=== PATIENT | female | born 1940 | race Caucasian/White ===

== ENCOUNTER 2024-12-25 17:22 | Inpatient (IN) | payer MEDICARE, OTHER ==
[~2024-12-25] VITALS: Ht 152.4 cm; Wt 69.1 kg
--- NOTE | 2024-12-25 17:45 | ECG ---
[facility] Test Date: 2024-12-25 Test Time: 17:41:11 Pat Name: ISAI CASH Department: ED Room: 0251 Gender: F [place] Floor Person: MEHRAN : 1940 Requested By: KARLEE HOFFMAN Order Number: [id number] Reading MD: Kingsley Francis Measurements Intervals [place] Rate: 74 P: 0 ME: 226 QRS: 40 QRSD: 95 T: 23 QT: 404 QTc: 449 Interpretive Statements Atrial-paced rhythm Minimal ST depression, inferior leads Electronically Signed On 12-29-2024 9:46:22 PDT by Kingsley Francis Please click the below link to view image of tracing.
--- NOTE | 2024-12-25 18:08 | ED.PDOC ---
History of Present Illness HPI Comments This is an 84-year-old female who comes in by EMS with dementia and oriented x1. The patient denies any vomiting or diarrhea. According to the paramedics, the patient has been living at home but has been more difficult to be care for. They were changing her approximately 45 minutes prior to arrival and the patient has slid down but did not hit her head. The patient seems to be declining according to the family. He has been having increased weakness over the past week. There has been no other complaints at this time. When we did try to interview the patient about her history, the patient is only able to tell us her name. Chief Complaint: General Weakness Time Seen by MD: 17:43 Reviewed Notes: Nurses Notes, Bullet Casting Operator Notes, Medications, Allergies (No allergies to medications) Allergies: Coded Allergies: NO KNOWN ALLERGIES (Unverified , 12/25/24) Information Source: Emergency Med Personnel Mode of Arrival: EMS Severity: Moderate Timing: Days Duration: Since onset Prehospital treatment: None Associated signs and symptoms Generalized weakness Past Medical History PAST MEDICAL HISTORY: Dementia, High Lipids, Denies Surgical History: Unknown JIG WORKER History: No Pertinent JIG WORKER History Family History Family History: Unknown Social History Smoker: Non-Smoker Alcohol: Denies ETOH Use Drugs: Denies Drug Use Lives In: Home Constitutional: reports: weakness; denies: chills, diaphoresis, fatigue, fever, malaise, sweats, others EENTM: denies: blurred vision, double vision, ear bleeding, ear discharge, ear drainage, ear pain, ear ringing, eye pain, eye redness, hearing loss, mouth pain, mouth swelling, nasal discharge, nose bleeding, nose congestion, nose pain, photophobia, tearing, throat pain, throat swelling, voice changes, others Respiratory: denies: cough, hemoptysis, orthopnea, SOB at rest, shortness of breath, SOB with excertion, stridor, wheezing, others Cardiovascular: denies: chest pain, dizzy spells, diaphoresis, Dyspnea on exertion, edema, irregular heart beat, left arm pain, lightheadedness, palpitations, PND, syncope, others Gastrointestinal: denies: abdomen distended, abdominal pain, blood streaked bowels, constipated, diarrhea, dysphagia, difficulty swallowing, hematemesis, melena, nausea, poor appetite, poor fluid intake, rectal bleeding, rectal pain, vomiting, others Genitourinary: denies: abnormal vagina bleeding, burning, dyspareunia, dysuria, flank pain, frequency, hematuria, incontinence, pain, , vagina discharge, urgency, others Neurological: reports: others (Altered mental status); denies: dizziness, fainting, headache, left sided numbness, left sided weakness, numbness, paresthesia, pre-existing deficit, right sided numbness, right sided weakness, seizure, speech problems, tingling, tremors, weakness Musculoskeletal: denies: back pain, gout, joint pain, joint swelling, muscle pain, muscle stiffness, neck pain, others Integumetry: denies: bruises, change in color, change in hair/nails, dryness, laceration, lesions, lumps, rash, wounds, others Allergic/Immunocompromised: denies: Difficulty Healing, Frequent Infections, Hives, Itching, others Hematologic/Lymphatic: denies: anemia, blood clots, easy bleeding, easy bruising, swollen glands, others Endocrine: denies: excessive hunger, excessive sweating, excessive thirst, excessive urination, flushing, intolerance to cold, intolerance to heat, unexplained weight gain, unexplained weight loss, others Psychiatric: denies: anxiety, bipolar disorder, depression, hopeless, panic disorder, schizophrenia, sleepless, suicidal, others Physical Exam General Appearance: Moderate Distress, Obese HEENT: Normal ENT Inspection, Pharynx Normal, TMs Normal Neck: Full Range of Motion, Non-Tender, Normal, Normal Inspection Respiratory: Chest Non-Tender, Lungs Clear, No Accessory Muscle Use, No Respiratory Distress, Normal Breath Sounds Cardiovascular: No Edema, No JVD, No Murmur, No Gallop, Normal Peripheral Pulses, Regular Rate/Rhythm Breast Exam: Deferred Gastrointestinal: No Organomegaly, Non Tender, No Pulsatile Mass, Normal Bowel Sounds, Soft Genitalia: Deferred Pelvic: Deferred Rectal: Deferred Extremities: No calf tenderness, Normal capillary refill, Normal inspection, Normal range of motion, Non-tender, No pedal edema Musculoskeletal : Apperance: Normal Neurologic: Alert, fruit buyer II-XII nml as Tested, Motor Weakness, No Sensory Deficits, Other (The patient is confused) Cerebellar Function: Normal Reflexes: Normal Skin: Dry, Normal Color, Warm Lymphatic: No Adenopathy Was a procedure done? Was a procedure done?: No Differential Dx Considerations may include: UTI, generalized weakness, electrolyte imbalance X-Ray, Labs, Meds, VS Vital Signs Date Time Temp Pulse Resp B/P (MAP) Pulse Ox O2 Delivery O2 Flow Rate FiO2 12/25/24 17:41 74 12/25/24 17:39 98.6 66 14 187/85 (119) 98 98.6 Lab Test 12/25/24 18:18 Range/Units White Blood Count 5.9 4.4-10.8 10^3/uL Red Blood Count 4.86 4.0-5.20 10^6/uL Hemoglobin 13.6 12.2-16.2 g/dL Hematocrit 40.9 36.0-46.0 % Mean Corpuscular Volume 84.0 80.0-100.0 fL Mean Corpuscular Hemoglobin 27.9 L 28.0-32.0 pg Mean Corpuscular Hemoglobin Concent 33.2 32.0-36.0 g/dL Red Cell Distribution Width 14.4 H 11.8-14.3 % Platelet Count 281 140-450 10^3/uL Mean Platelet Volume 7.3 6.9-10.8 fL Neutrophils (%) (Auto) 62.9 37.0-80.0 % Lymphocytes (%) (Auto) 26.2 10.0-50.0 % Monocytes (%) (Auto) 7.1 0.0-12.0 % Eosinophils (%) (Auto) 2.5 0.0-7.0 % Basophils (%) (Auto) 1.3 0.0-2.0 % Neutrophils # (Auto) 3.7 1.6-8.6 10 ^3/uL Lymphocytes # (Auto) 1.6 0.4-5.4 10 ^3/uL Monocytes # (Auto) 0.4 0-1.3 10 ^3/uL Eosinophils # (Auto) 0.1 0-0.8 10 ^3/uL Basophils # (Auto) 0.1 0-0.2 10 ^3/uL Nucleated Red Blood Cells 0.1 % Sodium Level 142 136-145 mmol/L Potassium Level 4.0 3.5-5.1 mmol/L Chloride Level 108 H 98-107 mmol/L Carbon Dioxide Level 25 20-31 mmol/L Anion Gap 9 5-15 Blood Urea Nitrogen 13 9-23 mg/dL Creatinine 0.74 0.550-1.02 mg/dL Glomerular Filtration Rate Calc 80 >90 mL/min BUN/Creatinine Ratio 17.6 10.0-20.0 Serum Glucose 93 74-106 mg/dL Calcium Level 10.5 H 8.7-10.4 mg/dL IV Hep-Lock was established The patient is given normal saline as a bolus Time of 1ST Reevaluation: 18:08 Reevaluation 1ST: Improved Patient Education/Counseling: Diagnosis, Treatment, Prognosis Family Education/Counseling: No Family Present SEPSIS Sepsis Screen Physician Orders Urinalysis (12/25/24 17:43) Buffet Runner (12/25/24 17:43) Pulse Oximetry (12/25/24 17:43) Blood Pressure (12/25/24 17:43) Heplock Iv (12/25/24 17:43) Vital Signs Date Time Temp Pulse Resp B/P (MAP) Pulse Ox O2 Delivery O2 Flow Rate FiO2 12/25/24 17:41 74 12/25/24 17:39 98.6 66 14 187/85 (119) 98 98.6 Laboratory Tests Test 12/25/24 18:18 White Blood Count 5.9 10^3/uL (4.4-10.8) Departure 1 Departure Time of Disposition: 18:08 Impression: Primary Impression: Dementia Qualified Codes: F03.B0 - Unspecified dementia, moderate, without behavioral disturbance, psychotic disturbance, mood disturbance, and anxiety Additional Impression: Autonomic dysfunction Disposition: ADMITTED INPATIENT Admit to: Med Surg Condition: Fair Critical Care Note Critical Care Time?: Yes Stability Stability form required: Yes Unstable for transfer: ED Physician Assesment (Clinical assesment) Heart Score Heart Score: Heart Score Response (Comments) Value History N/A 0 EKG N/A 0 Age N/A 0 Risk Factors N/A 0 Troponin N/A 0 Total 0 KARLEE HOFFMAN MD Dec 25, 2024 18:08
[2024-12-25 18:35] LABS: Hematocrit 40.9 % (36.0-46.0); Hemoglobin 13.6 g/dL (12.2-16.2); Mean Corpuscular Hemoglobin 27.9 pg (28.0-32.0); Mean Corpuscular Volume 84.0 fL (80.0-100.0); Nucleated Red Blood Cells % 0.1 %
[2024-12-25 18:44] LABS: Anion Gap 9 (5-15); Carbon Dioxide 25 mmol/L (20-31); Potassium 4.0 mmol/L (3.5-5.1); Sodium 142 mmol/L (136-145)
[2024-12-25 18:47] LABS: Calcium 10.5 mg/dL (8.7-10.4); Chloride 108 mmol/L (98-107)
[2024-12-25 18:50] LABS: BUN/Creatinine Ratio 17.6 (10.0-20.0); Blood Urea Nitrogen 13 mg/dL (9-23); Glucose 93 mg/dL (74-106)
[2024-12-25] MEDS ORDERED: ONDANSETRON HCL 4 MG/2 ML VIAL IV PRN (22:45)
--- NOTE | 2024-12-25 23:08 | DVH ---
EXAM: CT STROKE CTH INDICATION: r/o cva TECHNIQUE: CT of the head without intravenous contrast. Radiation Dose : 1. Head: CT Dose: CTDI volume is 53.99 mGy. Dose-length product is 863.9 mGy*cm The dose indicators for CT are the volume Computed Tomography (CT) Dose Index (CTDIvol) and the Dose Length Product (DLP), and are measured in units of mGy and mGy-cm, respectively. These indicators are not patient dose, but values generated from the CT scanner acquisition factors. The report includes radiation exposure data for exposures received during this examination. COMPARISON: None FINDINGS: There is no evidence of acute intracranial hemorrhage, extra-axial collection, mass effect, midline s hift, herniation or hydrocephalus. Increased prominence of the ventricles, sulci and cisterns is consistent with atrophic cortical volum e loss. The blancas-white differentiation is intact. Moderate diffuse confluent periventricular and subcortical white matter hypoattenuation is nonspecifi c but may be related to small vessel ischemic disease. Bilateral maxillary mucosal sinus disease. The remaining visualized paranasal sinuses and mastoid ai r cells are clear. The surrounding soft tissues and osseous structures are unremarkable. IMPRESSION: 1. No acute intracranial abnormality. 2. 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 Radiation optimization: All CT scans at this facility use at least one of these dose optimization fly hniques: automated exposure control mA and/or kV adjustment per patient size (includes targeted exam s where dose is matched to clinical indication) or iterative reconstruction.
--- NOTE | 2024-12-25 23:14 | DVHHP2 ---
History of Present Illness Reason for Visit: Altered mental status History of Present Illness 84-year-old female with a history of dementia presents with her daughter at the bedside for evaluation of altered mental status. Daughter reports patient becoming progressively more altered and having recurrent falls. Patient does dozier ve a history of dementia. Daughter is requesting the patient to be placed on a assisted as she can no longer take care of her. Past Medical History Dyslipidemia, dementia, hypertension Past Surgical History None Family History Noncontributory Smoke: No ALCOHOL: none Lives: with Family Review of Systems Review of Systems Review of systems can not be completed due to the patient's advanced dementia. Allergies: Coded Allergies: NO KNOWN ALLERGIES (Unverified , 12/25/24) Medications Current Medications Medications Dose Ordered Sig/Yovani Route Start Time Stop Time Status Last Admin Dose Admin Metoprolol Tartrate 50 mg BID PO 12/26/24 10:00 Hydralazine HCl 10 mg Q6HP PRN IV 12/25/24 22:45 Memantine 10 mg DAILY PO 12/26/24 10:00 Patient Own Medication 150 mg DAILY PO 12/26/24 10:00 UNV Buspirone HCl 15 mg DAILY PO 12/26/24 10:00 Ondansetron HCl 4 mg Q4HP PRN IV 12/25/24 22:45 Acetaminophen 650 mg Q6HP PRN PO 12/25/24 22:45 Exam Vital Signs Vital Signs Date Time Temp Pulse Resp B/P (MAP) Pulse Ox O2 Delivery O2 Flow Rate FiO2 12/25/24 17:41 74 12/25/24 17:39 98.6 14 187/85 (119) 98 98.6 Exam Gen: 84-year-old female in no apparent distress. Skin: Warm, dry, normal color and texture, no rash. HEENT: Normocephalic atraumatic, mucous membranes moist and pink. Neck: Cervical and supraclavicular nodes normal without enlargement, trachea is midline, thyroid gland is normal without masses. Pulmonary: Clear to auscultation and percussion bilaterally. Cardiac: Regular rate and rhythm. No murmur Abdomen: Soft, nontender, nondistended, bowel sounds present all 4 quadrants, no guarding, no rigidity, no organomegaly. Extremities: No cyanosis, clubbing, no edema Neuro: Confused Labs/Xrays Labs Test 12/25/24 18:18 Range/Units White Blood Count 5.9 4.4-10.8 10^3/uL Red Blood Count 4.86 4.0-5.20 10^6/uL Hemoglobin 13.6 12.2-16.2 g/dL Hematocrit 40.9 36.0-46.0 % Mean Corpuscular Volume 84.0 80.0-100.0 fL Mean Corpuscular Hemoglobin 27.9 L 28.0-32.0 pg Mean Corpuscular Hemoglobin Concent 33.2 32.0-36.0 g/dL Red Cell Distribution Width 14.4 H 11.8-14.3 % Platelet Count 281 140-450 10^3/uL Mean Platelet Volume 7.3 6.9-10.8 fL Neutrophils (%) (Auto) 62.9 37.0-80.0 % Lymphocytes (%) (Auto) 26.2 10.0-50.0 % Monocytes (%) (Auto) 7.1 0.0-12.0 % Eosinophils (%) (Auto) 2.5 0.0-7.0 % Basophils (%) (Auto) 1.3 0.0-2.0 % Neutrophils # (Auto) 3.7 1.6-8.6 10 ^3/uL Lymphocytes # (Auto) 1.6 0.4-5.4 10 ^3/uL Monocytes # (Auto) 0.4 0-1.3 10 ^3/uL Eosinophils # (Auto) 0.1 0-0.8 10 ^3/uL Basophils # (Auto) 0.1 0-0.2 10 ^3/uL Nucleated Red Blood Cells 0.1 % Sodium Level 142 136-145 mmol/L Potassium Level 4.0 3.5-5.1 mmol/L Chloride Level 108 H 98-107 mmol/L Carbon Dioxide Level 25 20-31 mmol/L Anion Gap 9 5-15 Blood Urea Nitrogen 13 9-23 mg/dL Creatinine 0.74 0.550-1.02 mg/dL Glomerular Filtration Rate Calc 80 >90 mL/min BUN/Creatinine Ratio 17.6 10.0-20.0 Serum Glucose 93 74-106 mg/dL Calcium Level 10.5 H 8.7-10.4 mg/dL Assessment/Plan Assessment/Plan Assessment Failure to thrive Dementia Accelerated hypertension Plan Admit the patient to [facility] to the hospitalist Social service consult for placement Resume home medications Continue treatment per orders. Plan discussed with: Patient My Orders Orders - TERRY SALAZAR Procedure Category Date Status Time Ct Head Cva CT 12/25/24 Resulted 22:23 Urinalysis LAB 12/25/24 Logged 22:31 Metoprolol Tartrate PHA 12/26/24 In Process Tablet (Lopressor Ta 10:00 Hydralazine Injection PHA 12/25/24 In Process (Apresoline Inject 22:45 Memantine Tablet PHA 12/26/24 In Process (Namenda Tablet) 10:00 (Nf) Pradaxa PHA 12/26/24 Pending 10:00 Buspirone Hcl Tablet PHA 12/26/24 In Process (Buspar Tablet) 10:00 * Customer Success Associate CONS 12/25/24 Transmitted Consult Urine Bacterial DEBBY 12/25/24 Logged Culture 22:31 Admit ADMIT 12/25/24 Transmitted 22:31 Ondansetron Hcl PHA 12/25/24 In Process (Zofran) 22:45 Cardiac DIET 12/26/24 Transmitted Diet-2gna,Lofat,Lochol Breakfast Condition: Stable JOANNE 12/25/24 In Process 22:31 Acetaminophen Tablet PHA 12/25/24 In Process (Tylenol Tablet) 22:45 Bedrest With Bathroom JOANNE 12/25/24 In Process Privileg 22:31 Date of Service: Dec 25, 2024 Billing Provider: TERRY SALAZAR Common Visit Codes: [id number] INP/OBS CARE (MOD) TERRY SALAZAR Dec 25, 2024 23:14
[2024-12-25 23:29] VITALS: PULSE 81; RESP 14; O2SAT 95
[2024-12-26] MEDS: hydrALAZINE HCL 20 MG/ML VL IV PRN (01:52)
[2024-12-26 02:05] LABS: Urine Protein, UAD TRACE (Negative)
[2024-12-26] MEDS: LORazepam 2MG/ML-1ML VIAL IV ONE (03:53)
[2024-12-26 08:04] VITALS: PULSE 60; RESP 12; O2SAT 97
[2024-12-26 10:35] VITALS: RESP 14; O2SAT 95
[2024-12-26] MEDS: METOPROLOL TARTRATE 50 MG TAB PO SCH (10:48)
[2024-12-26] MEDS: MEMANTINE HCL 5 MG TAB PO SCH (10:49)
--- NOTE | 2024-12-26 12:48 | DVHPN2 ---
Progress Note Date Seen: Dec 26, 2024 Medical Necessity Reason Pt with a Central, PICC or Fol: Yes The following are medically ne: Bain Catheter Reason for bain catheter: Strict I&O Subjective Patient reports: No new complaints Review of Systems: HEENT:Normal, CVS:Normal, RESPIRATORY:Normal, GI:Normal, :Normal, MSK:Normal, NEURO:Normal Objective vital signs Vital Sign Date Time Temp Pulse Resp B/P (MAP) Pulse Ox O2 Delivery O2 Flow Rate FiO2 12/26/24 12:01 60 13 158/59 (92) 97 12/26/24 08:04 97.2 97.2 12/26/24 08:04 Room Air* 0 21 Total Intake and Output 12/25/24 12/25/24 12/26/24 15:00 23:00 07:00 Output Total 27 ml Balance -27 ml medications Current Medications Medications Dose Ordered Sig/Yovani Route Start Time Stop Time Status Last Admin Dose Admin Metoprolol Tartrate 50 mg BID PO 12/26/24 10:00 12/26/24 10:48 50 MG Hydralazine HCl 10 mg Q6HP PRN IV 12/25/24 22:45 12/26/24 01:52 10 MG Memantine 10 mg DAILY PO 12/26/24 10:00 12/26/24 10:49 10 MG Patient Own Medication 150 mg DAILY PO 12/26/24 10:00 Buspirone HCl 15 mg DAILY PO 12/26/24 10:00 12/26/24 10:48 15 MG Ondansetron HCl 4 mg Q4HP PRN IV 12/25/24 22:45 Acetaminophen 650 mg Q6HP PRN PO 12/25/24 22:45 Examination: GENERAL:Normal, HEENT:Normal, NECK:Normal, LUNGS:Normal, CVS:Normal, ABDOMEN:Normal, MSK:Normal, SKIN:Normal, NEURO:Normal, :Normal laboratory and microbiology Laboratory Tests 12/25/24 18:18 Test 12/25/24 18:18 Range/Units Serum Glucose 93 74-106 mg/dL Problem List/Assessment/Plan Problem List/Assessment/Plan #1 dementia; check b12, tsh #2 htn #3 ? afib #4 hyperlipidemia advance care planning- full code- time spent 19 mins Plan discussed with: Patient Date of Service: Dec 26, 2024 Billing Provider: TERRY MCRAE MD Common Visit Codes: [id number] INP/OBS CARE(HIGH) Secondary Visit Codes: [id number] CARE PLAN 30 MINUTES TERRY MCRAE MD Dec 26, 2024 12:48
--- NOTE | 2024-12-26 14:39 | DVH ---
CHEST RADIOGRAPH Indication: HTN Technique: Single frontal view of the chest was obtained Comparison: None FINDINGS: Lines and Tubes: Dual lead left-sided pacemaker. Lungs: No focal consolidation. Pleura: No effusion. No pneumothorax. Cardiomediastinal contours: Unremarkable Bones: No acute osseous abnormality. IMPRESSION: No acute cardiopulmonary disease. Aortic atherosclerosis.
[2024-12-26 20:00] VITALS: PULSE 60; RESP 15; O2SAT 96
[2024-12-26 22:05] VITALS: BP 179/64; PULSE 63; RESP 16; TEMP 97.6; O2SAT 95
[2024-12-27] VITALS (8 sets, daily range): BP systolic 148–185; BP diastolic 68–112; PULSE 59–71; RESP 16–17; TEMP 97.1–98.3; O2SAT 94–98
[2024-12-27] MEDS ORDERED: TELM80TA PO (00:01)
[2024-12-27] MEDS ORDERED: NEBI10TA12 PO (00:01)
[2024-12-27] MEDS ORDERED: BUSP10TA31 PO (00:01)
[2024-12-27] MEDS ORDERED: MEMA1TAB5 PO (00:01)
[2024-12-27] MEDS ORDERED: DABI150C5 PO (00:01)
[2024-12-27] MEDS ORDERED: BUSP5TAB51 PO (00:47)
--- NOTE | 2024-12-27 01:59 | DVH ---
CLINICAL INDICATION: fall injury TECHNIQUE: XY PELVIS AP Comparison: None FINDINGS/IMPRESSION: : There is no definite evidence of acute fracture or dislocation. 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 Soft tissues are unremarkable.
[2024-12-27 06:47] LABS: Hematocrit 42.5 % (36.0-46.0); Hemoglobin 14.3 g/dL (12.2-16.2); Mean Corpuscular Hemoglobin 28.2 pg (28.0-32.0); Mean Corpuscular Volume 83.8 fL (80.0-100.0); Nucleated Red Blood Cells % 0.0 %
[2024-12-27 07:02] LABS: Alanine Aminotransferase 11 U/L (7-40); Albumin 3.9 g/dL (3.2-4.8); Alkaline Phosphatase 100 U/L (46-116); Anion Gap 8 (5-15); BUN/Creatinine Ratio 20.0 (10.0-20.0); Bilirubin, Total 0.8 mg/dL (0.2-1.0); Blood Urea Nitrogen 16 mg/dL (9-23); Calcium 10.0 mg/dL (8.7-10.4); Carbon Dioxide 27 mmol/L (20-31); Chloride 106 mmol/L (98-107); Glucose 97 mg/dL (74-106); Sodium 141 mmol/L (136-145); Total Protein 6.6 g/dL (5.7-8.2)
[2024-12-27 07:08] LABS: Potassium 3.5 mmol/L (3.5-5.1)
[2024-12-27] MEDS: CYANOCOBALAMIN (B-12) 1000 MCG/1 ML VIAL SUBCUT ONE (10:45)
[2024-12-27] MEDS: DABIGATRAN 75 MG CAP PO SCH (11:10)
[2024-12-27] MEDS: cefTRIAXone 1GM/50ML D5W 50 ML IV ONE (12:38)
[2024-12-27] MEDS: LOSARTAN POTASSIUM 50 MG TAB PO ONE (12:39)
[2024-12-27] MEDS: METOPROLOL TARTRATE 50 MG TAB PO SCH (22:39)
[2024-12-28] VITALS (7 sets, daily range): BP systolic 108–180; BP diastolic 48–78; PULSE 60–70; RESP 16–19; TEMP 36.6; O2SAT 94–98
[2024-12-28] MEDS: cefTRIAXone 1GM/50ML D5W 50 ML IV SCH (09:25)
[2024-12-28] MEDS: CYANOCOBALAMIN (B-12) 1000 MCG/1 ML VIAL SUBCUT SCH (09:28)
[2024-12-28] MEDS: LOSARTAN POTASSIUM 50 MG TAB PO SCH (09:29)
--- NOTE | 2024-12-28 11:02 | DVHPN2 ---
Progress Note Date Seen: Dec 27, 2024 Medical Necessity Reason Pt with a Central, PICC or Fol: Yes The following are medically ne: Bain Catheter Reason for bain catheter: Strict I&O Subjective Patient reports: No new complaints Review of Systems: HEENT:Normal, CVS:Normal, RESPIRATORY:Normal, GI:Normal, :Normal, MSK:Normal, NEURO:Normal Objective vital signs Vital Sign Date Time Temp Pulse Resp B/P (MAP) Pulse Ox O2 Delivery O2 Flow Rate FiO2 12/28/24 09:30 68 158/48 12/28/24 08:58 97.9 19 97 97.9 12/28/24 08:00 Room Air* 0 21 Total Intake and Output 12/27/24 12/27/24 12/28/24 15:00 23:00 07:00 Intake Total 600 ml 395 ml Output Total 800 ml 650 ml Balance -200 ml -255 ml medications Current Medications Medications Dose Ordered Sig/Yovani Route Start Time Stop Time Status Last Admin Dose Admin Hydralazine HCl 10 mg Q6HP PRN IV 12/25/24 22:45 12/28/24 05:20 10 MG Memantine 10 mg DAILY PO 12/26/24 10:00 12/28/24 09:29 10 MG Buspirone HCl 15 mg DAILY PO 12/26/24 10:00 12/28/24 09:34 15 MG Ondansetron HCl 4 mg Q4HP PRN IV 12/25/24 22:45 Acetaminophen 650 mg Q6HP PRN PO 12/25/24 22:45 Metoprolol Tartrate 25 mg BID PO 12/27/24 22:00 12/28/24 09:30 25 MG Ceftriaxone Sodium 50 ml @ 100 mls/hr DAILY@09 IV 12/28/24 09:00 12/28/24 09:25 100 MLS/HR Dabigatran 75 mg BID PO 12/27/24 11:10 12/28/24 09:28 75 MG Losartan Potassium 50 mg DAILY PO 12/28/24 10:00 12/28/24 09:29 50 MG Cyanocobalamin 100 mcg DAILY SUBCUT 12/28/24 10:00 12/28/24 09:28 100 MCG Examination: GENERAL:Normal, HEENT:Normal, NECK:Normal, LUNGS:Normal, CVS:Normal, ABDOMEN:Normal, MSK:Normal, SKIN:Normal, NEURO:Normal, :Normal laboratory and microbiology Laboratory Tests 12/27/24 06:21 Test 12/27/24 06:21 Range/Units Serum Glucose 97 74-106 mg/dL Microbiology Date/Time Source Procedure Growth Status 12/26/24 01:00 Voided Urine Urine Culture - Preliminary Resulted Problem List/Assessment/Plan Problem List/Assessment/Plan #1 dementia; #2 htn #3 ? afib #4 hyperlipidemia #5 UTI: iv rocephin #6 vit b12 def long dw daughter note for 12/27/24 advance care planning- dnr- time spent 19 mins Plan discussed with: Patient, Daughter My Orders My Orders Orders - TERRY MCRAE MD Procedure Category Date Status Time Discharge DISCHARGE 12/28/24 Transmitted 10:55 * Order Selector CONS 12/28/24 Transmitted Consult 10:58 Date of Service: Dec 27, 2024 Billing Provider: TERRY MCRAE MD Common Visit Codes: [id number] INP/OBS CARE(HIGH) Secondary Visit Codes: [id number] CARE PLAN 30 MINUTES TERRY MCRAE MD Dec 28, 2024 11:02
--- NOTE | 2024-12-28 11:06 | DVHDS ---
DATE OF DISCHARGE: 12/28/2024 The patient is an 84-year-old lady who was admitted with history of altered mental status and recurrent falls. She has history of dementia, hypertension, hyperlipidemia. HOSPITAL COURSE: The patient had a CT of the head that showed no acute intracranial abnormality. The patient had a pelvic x-ray that showed no fracture. The patient had evidence of UTI and was placed on IV Rocephin. The patient's B12 level was low at 204. The patient will now be discharged to a SNF as per family wishes to be on medications as per med reconciliation. FINAL DIAGNOSES: * Dementia. * Vitamin B12 deficiency. * UTI. * Hypertension. * History of pacemaker. * Atrial fibrillation. * Hyperlipidemia. * DNR status. Time spent in discharge planning and review of plan with the patient, family, and paperwork was 39 minutes. MD JODI Hinojosa/BUBBA TID: [id number] RECEIPT: [id number]
[2024-12-28] MEDS: ACETAMINOPHEN 325 MG TAB PO PRN (21:09)
[2024-12-29] VITALS (8 sets, daily range): BP systolic 149–172; BP diastolic 63–78; PULSE 60–67; RESP 16–18; TEMP 97.5–98.4; O2SAT 94–97
--- NOTE | 2024-12-29 13:50 | DVHPN2 ---
Changes from previous H/P or p: No Changes Objective Vitals Vital Signs Date Time Temp Pulse Resp B/P (MAP) Pulse Ox O2 Delivery O2 Flow Rate FiO2 12/29/24 12:33 98.4 63 16 159/68 (98) 96 98.4 12/29/24 08:00 Room Air* 0 21 Intake/Output Intake and Output 12/29/24 07:00 Intake Total 875 ml Output Total 775 ml Balance 100 ml Intake Oral 825 ml IV Total 50 ml Output Urine Total 775 ml Medications Current Medications Medications Dose Ordered Sig/Yovani Route Start Time Stop Time Status Last Admin Dose Admin Hydralazine HCl 10 mg Q6HP PRN IV 12/25/24 22:45 12/29/24 05:12 10 MG Memantine 10 mg DAILY PO 12/26/24 10:00 12/29/24 09:48 10 MG Buspirone HCl 15 mg DAILY PO 12/26/24 10:00 12/29/24 09:47 15 MG Ondansetron HCl 4 mg Q4HP PRN IV 12/25/24 22:45 Acetaminophen 650 mg Q6HP PRN PO 12/25/24 22:45 12/28/24 21:09 650 MG Metoprolol Tartrate 25 mg BID PO 12/27/24 22:00 12/29/24 09:50 25 MG Ceftriaxone Sodium 50 ml @ 100 mls/hr DAILY@09 IV 12/28/24 09:00 12/29/24 09:47 100 MLS/HR Dabigatran 75 mg BID PO 12/27/24 11:10 12/29/24 10:29 75 MG Losartan Potassium 50 mg DAILY PO 12/28/24 10:00 12/29/24 09:49 50 MG Cyanocobalamin 100 mcg DAILY SUBCUT 12/28/24 10:00 12/29/24 09:55 100 MCG Laboratory Results Laboratory Tests 12/27/24 06:21 Urinalysis Test 12/26/24 01:00 Urine Color Yellow (Yellow) Urine Clarity Turbid (Clear) H Urine pH 5.0 (5.0-9.0) Urine Specific [place] 1.027 (1.001-1.035) Urine Protein Trace (Negative) H Urine Ketones Negative (Negative) Urine Blood Negative /uL (Negative) Urine Nitrite 2+ (Negative) H Urine Bilirubin Negative (Negative) Urine Urobilinogen Normal mg/dL (Negative) Urine Leukocyte Esterase 2+ /uL (Negative) Urine RBC 11 /hpf (0 - 4) Urine Microscopic WBC 53 /HPF (0-5) H Urine Squamous Epithelial Cells Few /hpf (<5) Urine Bacteria Many /hpf (None Seen) H Urine Mucus Few (None Seen) Urine Glucose Normal mg/dL (Normal) Microbiology Microbiology Date/Time Source Procedure Growth Status 12/26/24 01:00 Voided Urine Urine Culture - Final Escherichia coli Complete Labs and/or images reviewed: Labs reviewed by me, Image(s) reviewed by me Assessment/Plan Assessment/Plan Covering for Dr. [place] * Dementia. * Vitamin B12 deficiency. * UTI. * Hypertension. * History of pacemaker. * Atrial fibrillation. * Hyperlipidemia. * DNR status. Waiting for transportation to [facility] acute Sitter discontinued Plan discussed with: Patient My Orders Orders - MACK CRISTINA MD Procedure Category Date Status Time D/C Sitter ORDERS 12/29/24 Transmitted 13:47 Communication Order ORDERS 12/29/24 Transmitted 13:47 Date of Service: Dec 29, 2024 Billing Provider: MACK CRISTINA MD Common Visit Codes: [id number] INP/OBS CARE(HIGH) MACK CRISTINA MD Dec 29, 2024 13:50
[2024-12-30] VITALS (8 sets, daily range): BP systolic 135–186; BP diastolic 51–83; PULSE 60–73; RESP 16–18; TEMP 97.1–98.5; O2SAT 92–97
[2024-12-30] MEDS ORDERED: hydrALAZINE HCL 20 MG/ML VL ONE (06:56)
--- NOTE | 2024-12-30 09:57 | DVHPN2 ---
Changes from previous H/P or p: No Changes Objective Vitals Vital Signs Date Time Temp Pulse Resp B/P (MAP) Pulse Ox O2 Delivery O2 Flow Rate FiO2 12/30/24 07:19 179/93 12/30/24 05:00 97.8 64 18 97 97.8 12/29/24 20:00 Room Air* 0 21 Intake/Output Intake and Output 12/30/24 07:00 Intake Total 420 ml Output Total 450 ml Balance -30 ml Intake Oral 420 ml Output Urine Total 450 ml Medications Current Medications Medications Dose Ordered Sig/Yovani Route Start Time Stop Time Status Last Admin Dose Admin Hydralazine HCl 10 mg Q6HP PRN IV 12/25/24 22:45 12/30/24 07:19 10 MG Memantine 10 mg DAILY PO 12/26/24 10:00 12/29/24 09:48 10 MG Buspirone HCl 15 mg DAILY PO 12/26/24 10:00 12/29/24 09:47 15 MG Ondansetron HCl 4 mg Q4HP PRN IV 12/25/24 22:45 Acetaminophen 650 mg Q6HP PRN PO 12/25/24 22:45 12/28/24 21:09 650 MG Metoprolol Tartrate 25 mg BID PO 12/27/24 22:00 12/30/24 01:00 25 MG Ceftriaxone Sodium 50 ml @ 100 mls/hr DAILY@09 IV 12/28/24 09:00 12/29/24 09:47 100 MLS/HR Dabigatran 75 mg BID PO 12/27/24 11:10 12/29/24 22:00 75 MG Losartan Potassium 50 mg DAILY PO 12/28/24 10:00 12/29/24 09:49 50 MG Cyanocobalamin 100 mcg DAILY SUBCUT 12/28/24 10:00 12/29/24 09:55 100 MCG Laboratory Results Laboratory Tests 12/27/24 06:21 Urinalysis Test 12/26/24 01:00 Urine Color Yellow (Yellow) Urine Clarity Turbid (Clear) H Urine pH 5.0 (5.0-9.0) Urine Specific [place] 1.027 (1.001-1.035) Urine Protein Trace (Negative) H Urine Ketones Negative (Negative) Urine Blood Negative /uL (Negative) Urine Nitrite 2+ (Negative) H Urine Bilirubin Negative (Negative) Urine Urobilinogen Normal mg/dL (Negative) Urine Leukocyte Esterase 2+ /uL (Negative) Urine RBC 11 /hpf (0 - 4) Urine Microscopic WBC 53 /HPF (0-5) H Urine Squamous Epithelial Cells Few /hpf (<5) Urine Bacteria Many /hpf (None Seen) H Urine Mucus Few (None Seen) Urine Glucose Normal mg/dL (Normal) Microbiology Microbiology Date/Time Source Procedure Growth Status 12/26/24 01:00 Voided Urine Urine Culture - Final Escherichia coli Complete Labs and/or images reviewed: Labs reviewed by me, Image(s) reviewed by me Assessment/Plan Assessment/Plan Covering for Dr. Stockton * Dementia. * Vitamin B12 deficiency. * UTI. * Hypertension. * History of pacemaker. * Atrial fibrillation. * Hyperlipidemia. * DNR status. Waiting for transportation to [place] post acute today Sitter discontinued Plan discussed with: Patient My Orders Orders - MACK CRISTINA MD Procedure Category Date Status Time D/C Sitter ORDERS 12/29/24 Transmitted 13:47 Communication Order ORDERS 12/29/24 Transmitted 13:47 Date of Service: Dec 30, 2024 Billing Provider: MACK CRISTINA MD Common Visit Codes: [id number] INP/OBS CARE(HIGH) MACK CRISTINA MD Dec 30, 2024 09:57
[2024-12-31 01:00] VITALS: BP 184/54; PULSE 60; RESP 17; TEMP 97.7; O2SAT 93
[2024-12-31 05:00] VITALS: BP 133/52; PULSE 63; RESP 17; TEMP 97.8; O2SAT 92
[2024-12-31] MEDS: Ensure Enlive Vanilla 8oz Bottle PO SCH (08:00)
[2024-12-31 09:00] VITALS: BP 146/60; PULSE 68; RESP 17; TEMP 98.3; O2SAT 94
[2024-12-31] MEDS: CYANOCOBALAMIN (B-12) 1000 MCG/1 ML VIAL SUBCUT ONE (11:00)
--- NOTE | 2024-12-31 11:09 | DVHPN2 ---
Reviewed: Care Plan, H&P, Labs, Medications, Previous Orders, Radiology Changes from previous H/P or p: No Changes Objective Vitals Vital Signs Date Time Temp Pulse Resp B/P (MAP) Pulse Ox O2 Delivery O2 Flow Rate FiO2 12/31/24 11:02 138/65 12/31/24 11:01 69 12/31/24 05:00 97.8 17 92 97.8 12/30/24 20:00 Room Air* 0 21 Intake/Output Intake and Output 12/31/24 07:00 Intake Total 220 ml Output Total 475 ml Balance -255 ml Intake Oral 220 ml Output Urine Total 475 ml Medications Current Medications Medications Dose Ordered Sig/Yovani Route Start Time Stop Time Status Last Admin Dose Admin Hydralazine HCl 10 mg Q6HP PRN IV 12/25/24 22:45 12/30/24 07:19 10 MG Memantine 10 mg DAILY PO 12/26/24 10:00 12/31/24 10:54 10 MG Buspirone HCl 15 mg DAILY PO 12/26/24 10:00 12/31/24 10:55 15 MG Ondansetron HCl 4 mg Q4HP PRN IV 12/25/24 22:45 Acetaminophen 650 mg Q6HP PRN PO 12/25/24 22:45 12/28/24 21:09 650 MG Metoprolol Tartrate 25 mg BID PO 12/27/24 22:00 12/31/24 11:01 25 MG Ceftriaxone Sodium 50 ml @ 100 mls/hr DAILY@09 IV 12/28/24 09:00 12/31/24 09:17 100 MLS/HR Dabigatran 75 mg BID PO 12/27/24 11:10 12/31/24 10:54 75 MG Losartan Potassium 50 mg DAILY PO 12/28/24 10:00 12/31/24 11:02 50 MG Cyanocobalamin 100 mcg DAILY SUBCUT 12/28/24 10:00 12/30/24 09:50 100 MCG Enteral Nutritional Formula 240 ml BIDBL PO 12/31/24 08:00 12/31/24 08:00 240 ML Laboratory Results Laboratory Tests 12/27/24 06:21 Urinalysis Test 12/26/24 01:00 Urine Color Yellow (Yellow) Urine Clarity Turbid (Clear) H Urine pH 5.0 (5.0-9.0) Urine Specific [place] 1.027 (1.001-1.035) Urine Protein Trace (Negative) H Urine Ketones Negative (Negative) Urine Blood Negative /uL (Negative) Urine Nitrite 2+ (Negative) H Urine Bilirubin Negative (Negative) Urine Urobilinogen Normal mg/dL (Negative) Urine Leukocyte Esterase 2+ /uL (Negative) Urine RBC 11 /hpf (0 - 4) Urine Microscopic WBC 53 /HPF (0-5) H Urine Squamous Epithelial Cells Few /hpf (<5) Urine Bacteria Many /hpf (None Seen) H Urine Mucus Few (None Seen) Urine Glucose Normal mg/dL (Normal) Microbiology Microbiology Date/Time Source Procedure Growth Status 12/26/24 01:00 Voided Urine Urine Culture - Final Escherichia coli Complete Labs and/or images reviewed: Labs reviewed by me, Image(s) reviewed by me Assessment/Plan Assessment/Plan Covering for Dr. Stockton * Dementia. * Vitamin B12 deficiency. * UTI. * Hypertension. * History of pacemaker. * Atrial fibrillation. * Hyperlipidemia. * DNR status. Waiting for transportation to [place] post acute today Sitter discontinued Plan discussed with: Patient Date of Service: Dec 31, 2024 Billing Provider: MACK CRISTINA MD Common Visit Codes: [id number] INP/OBS CARE(HIGH) MACK CRISTINA MD Dec 31, 2024 11:09
[2024-12-31 13:00] VITALS: BP 148/65; PULSE 65; RESP 17; TEMP 98.3; O2SAT 95
[2024-12-31 17:00] VITALS: BP 134/58; PULSE 59; RESP 18; TEMP 99.1; O2SAT 95
[2024-12-31 20:00] VITALS: PULSE 64
== END 2024-12-31 21:57 | DRG 689 ==
LOC: EDBD 17:22 → ER 17:27 → OVERFLOW 22:31 → EAST 12-26 21:50
PROVIDERS: ADMIT Internal Medicine; ATTEND Internal Medicine
DX: N30.00 Acute cystitis without hematuria (principal); G93.41 Metabolic encephalopathy; R62.7 Adult failure to thrive; E78.5 Hyperlipidemia, unspecified; Z66 Do not resuscitate; I48.91 Unspecified atrial fibrillation; I10 Essential (primary) hypertension; G90.89 Other disorders of autonomic nervous system; E53.8 Deficiency of other specified B group vitamins; R29.6 Repeated falls; F03.90 Unspecified dementia, unspecified severity, without behavioral disturbance, psychotic disturbance, mood disturbance, and anxiety; Z95.0 Presence of cardiac pacemaker; Z79.899 Other long term (current) drug therapy; Z68.30 Body mass index [BMI] 30.0-30.9, adult
CPT/HCPCS: 36415; 70450; 71045; 72170; 80048; 80053; 81001; 82607; 82962; 84443; 85025; 87086; 87088; 87186; 93005; 97110; 97163; 97530; G0378

== ENCOUNTER 2025-01-21 22:32 | Inpatient (IN) | payer MEDICARE, OTHER ==
[~2025-01-21] VITALS: Ht 170.2 cm; Wt 70.7 kg
[~2025-01-21 22:32] MED LIST: BUSP5TAB51 PO; DABI150C5 PO; MEMA1TAB5 PO; NEBI10TA12 PO; TELM80TA PO
--- NOTE | 2025-01-21 22:42 | ECG ---
[facility] Test Date: 2025-01-21 Test Time: 22:37:28 Pat Name: ISAI CASH Department: ED Room: 0280T Gender: F Shot Peen Operator: renetta : 1940 Requested By: ALYSHA PERRY Order Number: [id number] Reading MD: Kingsley Francis Measurements Intervals [place] Rate: 89 P: 69 LA: 144 QRS: 59 QRSD: 90 T: 254 QT: 327 QTc: 398 Interpretive Statements Sinus rhythm Nonspecific repol abnormality, diffuse leads Electronically Signed On 01-24-2025 17:49:11 PDT by Kingsley Francis Please click the below link to view image of tracing.
[2025-01-21] MEDS: SODIUM CHLORIDE 0.9% 1,000 ML IVB ONE (22:45)
--- NOTE | 2025-01-21 22:50 | ED.PDOC ---
History of Present Illness HPI Comments 84 y/o F is QUINN from [facility] facility home for c/c altered mental status and failure to thrive. Per EMS report, staff called after endorsing on finding patient in current altered state from her usual baseline ( A&Ox0 vs 4) and not eating or drinking anything after dealing with a UTI for over the past 2x days. Significant history for AFib, dementia, HLD, HTN, UTI's, pacemaker, assisted living, and DNR status. Vitals were reported to have been stable and within normal limits, with exception of a systolic pressure in the 170's and a blood glucose of 103. No further acute symptoms reported. Further history is limited, due to patient's current condition and absence of family/cold rolling coordinator historian. Time Seen by MD: 22:30 Primary Care Provider: UNKNOWN Reviewed Notes: Nurses Notes, Water Commissioner Notes, Medications, Allergies Allergies: Coded Allergies: NO KNOWN ALLERGIES (Unverified , 12/25/24) Home Meds Reported Medications Buspirone Hcl (Buspirone Hcl) 5 Mg Tab, 1 TAB PO BID 12/27/24 Telmisartan (Micardis) 80 Mg Tab, 20 MG PO DAILY, TAB 12/27/24 Nebivolol HCl (Nebivolol) 10 Mg Tab, 10 MG PO DAILY, TAB 12/27/24 Dabigatran Etexilate Mesylate (Pradaxa) 150 Mg Cap, 150 MG PO BID, CAP 12/27/24 Memantine Hydrochloride (Memantine HCl) 10 Mg Tab, 10 MG PO DAILY, TAB 12/27/24 Information Source: Emergency Med Personnel Mode of Arrival: EMS Severity: Moderate Timing: Hours Duration: Since onset Prehospital treatment: 12 Lead EKG, Accucheck, Pipe Processor Past Medical History PAST MEDICAL HISTORY: AFIB, Dementia, High Lipids, HTN, UTI'S Past Medical History (Other): * Vitamin B12 deficiency. * DNR status. Surgical History: Pacemaker SUPERVISOR [employer] HATCHERY History: No Pertinent SUPERVISOR [employer] HATCH[employer] History Family History Family History: Unknown Social History Smoker: Non-Smoker Alcohol: Denies ETOH Use Drugs: Denies Drug Use Lives In: Assisted Care, Prison All Other Systems: Reviewed and Negative (Comprehensive systems review obtained and negative except for what is stated in the HPI.) Physical Exam General Appearance: No Apparent Distress, Normal HEENT: Normal ENT Inspection, Pharynx Normal, TMs Normal Neck: Full Range of Motion, Non-Tender, Normal, Normal Inspection Respiratory: Chest Non-Tender, Lungs Clear, No Accessory Muscle Use, No Respiratory Distress, Normal Breath Sounds Cardiovascular: No Edema, No JVD, No Murmur, No Gallop, Normal Peripheral Pulses, Regular Rate/Rhythm Breast Exam: Deferred Gastrointestinal: No Organomegaly, Non Tender, No Pulsatile Mass, Normal Bowel Sounds, Soft Genitalia: Deferred Pelvic: Deferred Rectal: Deferred Extremities: No calf tenderness, Normal capillary refill, Normal inspection, Normal range of motion, Non-tender, No pedal edema Musculoskeletal : Apperance: Normal Neurologic: Alert (Has history of dementia; otherwise confused ), machine room engineer II-XII nml as Tested, No Motor Deficits, No Sensory Deficits Cerebellar Function: Normal Reflexes: Normal Skin: Dry, Normal Color, Warm Lymphatic: No Adenopathy Was a procedure done? Was a procedure done?: No EKG EKG : Pulse Rate (adult): 89 [place]: Normal Cardiac Rhythm: NSR Block: None Hypertrophy: None ST: Normal Differential Dx Considerations may include: encephalopathy, dehydration, malnutrition, electrolyte imbalance, UTI, viral syndrome, sepsis, among others X-Ray, Labs, Meds, VS Vital Signs Date Time Temp Pulse Resp B/P (MAP) Pulse Ox O2 Delivery O2 Flow Rate FiO2 01/21/25 22:50 89 01/21/25 22:37 89 01/21/25 22:35 98.2 103 17 180/88 (118) 97 98.2 Lab Test 01/21/25 23:04 Range/Units White Blood Count 16.3 H 4.4-10.8 10^3/uL Red Blood Count 5.44 H 4.0-5.20 10^6/uL Hemoglobin 15.4 12.2-16.2 g/dL Hematocrit 46.0 36.0-46.0 % Mean Corpuscular Volume 84.6 80.0-100.0 fL Mean Corpuscular Hemoglobin 28.2 28.0-32.0 pg Mean Corpuscular Hemoglobin Concent 33.4 32.0-36.0 g/dL Red Cell Distribution Width 14.4 H 11.8-14.3 % Platelet Count 336 140-450 10^3/uL Mean Platelet Volume 7.6 6.9-10.8 fL Neutrophils (%) (Auto) 86.9 H 37.0-80.0 % Lymphocytes (%) (Auto) 7.1 L 10.0-50.0 % Monocytes (%) (Auto) 5.5 0.0-12.0 % Eosinophils (%) (Auto) 0.1 0.0-7.0 % Basophils (%) (Auto) 0.4 0.0-2.0 % Neutrophils # (Auto) 14.1 H 1.6-8.6 10 ^3/uL Lymphocytes # (Auto) 1.2 0.4-5.4 10 ^3/uL Monocytes # (Auto) 0.9 0-1.3 10 ^3/uL Eosinophils # (Auto) 0 0-0.8 10 ^3/uL Basophils # (Auto) 0.1 0-0.2 10 ^3/uL Nucleated Red Blood Cells 0.0 % Sodium Level 140 136-145 mmol/L Potassium Level 3.8 3.5-5.1 mmol/L Chloride Level 104 98-107 mmol/L Carbon Dioxide Level 23 20-31 mmol/L Anion Gap 13 5-15 Blood Urea Nitrogen 19 9-23 mg/dL Creatinine 0.74 0.550-1.02 mg/dL Glomerular Filtration Rate Calc 80 >90 mL/min BUN/Creatinine Ratio 25.7 H 10.0-20.0 Serum Glucose 103 74-106 mg/dL Lactic Acid Level 1.1 0.4-2.0 mmol/L Calcium Level 11.1 H 8.7-10.4 mg/dL Magnesium Level 2.2 1.6-2.6 mg/dL Total Bilirubin 0.9 0.2-1.0 mg/dL Aspartate Amino Transferase (AST) 22 13-40 U/L Alanine Aminotransferase (ALT) 14 7-40 U/L Alkaline Phosphatase 87 46-116 U/L Troponin I High Sensitivity 67 *H </=34 ng/L Total Protein 7.3 5.7-8.2 g/dL Albumin 4.4 3.2-4.8 g/dL Time of 1ST Reevaluation: 23:00 Reevaluation 1ST: Unchanged Patient Education/Counseling: Other (Patient is altered ) Family Education/Counseling: No Family Present SEPSIS Sepsis Screen Physician Orders Urinalysis (01/21/25 22:40) Blood Culture (01/21/25 22:40) Chest Portable (01/21/25 22:40) Troponin-I Hs (01/21/25 23:40) Troponin-I Hs (01/22/25 01:40) Head Without Contrast (01/21/25 22:40) Vital Signs Date Time Temp Pulse Resp B/P (MAP) Pulse Ox O2 Delivery O2 Flow Rate FiO2 01/21/25 22:50 89 01/21/25 22:37 89 01/21/25 22:35 98.2 103 17 180/88 (118) 97 98.2 Laboratory Tests Test 01/21/25 23:04 Lactic Acid Level 1.1 mmol/L (0.4-2.0) White Blood Count 16.3 10^3/uL (4.4-10.8) H Departure 1 Departure Time of Disposition: 23:52 Impression: Primary Impression: Dementia Additional Impressions: Acute metabolic encephalopathy Dehydration Pneumonitis Disposition: ADMITTED INPATIENT Admit to: Med Surg Condition: Guarded Discharged With: Self Comments Altered Mental Status in 84-year-old Female from SNF Chief Complaint: Altered mental status and decreased oral intake History of Present Illness: Patient is an 84-year-old female with a history of dementia who presents from her retirement facility with decreased mental status and decreased oral intake for the past two days. Per report, the patient is normally able to talk and obey commands but is now lethargic and nonverbal, only responding to loud voice. She was brought to the emergency department for evaluation of acute change in mental status in the context of poor oral intake. Review of Systems: Constitutional: Lethargy, decreased oral intake. Neurological: Altered mental status, decreased responsiveness. Respiratory: Unable to obtain due to patient's mental status. Cardiovascular: Unable to obtain due to patient's mental status. Gastrointestinal: Decreased oral intake. All other systems: Unable to obtain due to patient's mental status. Medications: Not available from plunket nurse. Medication list to be obtained from skilled [facility] facility. Physical Exam: General: Elderly female, lethargic. Neurological: Patient is nonverbal but responds to loud voice. Decreased mental status from baseline. Other systems: Limited examination due to patient's mental status. Lab Results: CBC: - WBC: 16.3 (elevated) - Remainder of CBC unremarkable Chemistry Panel: - Unremarkable Cardiac Enzymes: - Troponin: 67 (elevated) Imaging and Other Relevant Results: CT Head: Degenerative changes, no acute findings. Chest X-ray: Left basilar infiltrate versus atelectasis. Medical Decision Making: Summary Statement: 84-year-old female with history of dementia presenting from retirement facility with acute change in mental status, decreased oral intake, elevated WBC, elevated troponin, and left basilar infiltrate on chest X- ray. Problem List: 1. Altered mental status 2. Suspected pneumonia 3. Dehydration 4. Failure to thrive 5. Elevated troponin 6. Dementia Differential Diagnosis: For altered mental status: Pneumonia, UTI, dehydration, metabolic encephalopathy, medication effect, stroke, seizure, cardiac event. For elevated troponin: Demand ischemia, acute coronary syndrome, renal dysfunction. ED Course: Patient evaluated for altered mental status. Labs revealed elevated WBC and troponin. Imaging showed left basilar infiltrate on chest X-ray and no acute findings on head CT. Patient was started on IV Rocephin and azithromycin for suspected pneumonia. Decision made to admit for further management. Assessment and Plan: 1. Suspected Pneumonia: - Elevated WBC (16.3) and left basilar infiltrate on chest X-ray - Started on IV Rocephin and azithromycin in the ED - Continue antibiotics during admission - Monitor respiratory status 2. Altered Mental Status/Metabolic Encephalopathy: - Likely multifactorial due to infection, dehydration, and underlying dementia - Head CT negative for acute pathology - Monitor neurological status - Treat underlying causes 3. Dehydration/Failure to Thrive: - History of decreased oral intake for two days - Provide IV hydration - Monitor electrolytes - Nutrition consult during admission 4. Elevated Troponin: - Likely demand ischemia in setting of infection and dehydration - Monitor cardiac status - Serial troponins during admission 5. Dementia: - Baseline cognitive impairment - Continue home medications Disposition: Admit to medical floor for management of pneumonia, dehydration, and metabolic encephalopathy. Additional Notes: Patient to be admitted for pneumonia, failure to thrive, dehydration, and metabolic encephalopathy. Billing Information: ICD-10: J18.9 - Pneumonia, unspecified organism ICD-10: R41.0 - Disorientation, unspecified ICD-10: R63.3 - Feeding difficulties ICD-10: E87.8 - Other disorders of electrolyte and fluid balance ICD-10: F03.90 - Unspecified dementia without behavioral disturbance Critical Care Note Critical Care Time?: No Stability Stability form required: No Heart Score Heart Score: Heart Score Response (Comments) Value History N/A 0 EKG N/A 0 Age N/A 0 Risk Factors N/A 0 Troponin N/A 0 Total 0 I personally scribed for ALYSHA PERRY MD ([email or web address]) on 01/21/25 at 22:50. Electronically submitted by Antonio Milton [email or web address]). ALYSHA PERRY MD Jan 21, 2025 22:50
[2025-01-21 23:13] LABS: Hematocrit 46.0 % (36.0-46.0); Hemoglobin 15.4 g/dL (12.2-16.2); Mean Corpuscular Hemoglobin 28.2 pg (28.0-32.0); Mean Corpuscular Volume 84.6 fL (80.0-100.0); Nucleated Red Blood Cells % 0.0 %
--- NOTE | 2025-01-21 23:20 | DVH ---
CHEST RADIOGRAPH Indication: SOB Technique: Single frontal view of the chest was obtained COMPARISON: XY CHEST PORTABLE on DOS: 12/26/24 FINDINGS: Lines and Tubes: None. Left anterior chest wall cardiac pacing device. Lungs: Mild left basilar infiltrate and/or atelectasis. The remaining lung zones are clear. No eviden ce of focal consolidation. Pleura: No effusion. No pneumothorax. Cardiomediastinal contours: Unremarkable. Atherosclerotic vascular calcifications. Bones: Unremarkable IMPRESSION: 1. Mild left basilar infiltrate and/or atelectasis.
[2025-01-21 23:32] LABS: Alanine Aminotransferase 14 U/L (7-40); Albumin 4.4 g/dL (3.2-4.8); Alkaline Phosphatase 87 U/L (46-116); Anion Gap 13 (5-15); BUN/Creatinine Ratio 25.7 (10.0-20.0); Blood Urea Nitrogen 19 mg/dL (9-23); Carbon Dioxide 23 mmol/L (20-31); Chloride 104 mmol/L (98-107); Glucose 103 mg/dL (74-106); Magnesium 2.2 mg/dL (1.6-2.6); Potassium 3.8 mmol/L (3.5-5.1); Sodium 140 mmol/L (136-145); Total Protein 7.3 g/dL (5.7-8.2)
[2025-01-21 23:33] LABS: Bilirubin, Total 0.9 mg/dL (0.2-1.0)
[2025-01-21 23:37] LABS: Calcium 11.1 mg/dL (8.7-10.4)
--- NOTE | 2025-01-21 23:41 | DVH ---
EXAM: CT HEAD WITHOUT CONTRAST INDICATION: ALOC TECHNIQUE: CT of the head without intravenous contrast. Radiation Dose : 1. Head: CT Dose: CTDI volume is 51 mGy. Dose-length product is 902 mGy*cm The dose indicators for CT are the volume Computed Tomography (CT) Dose Index (CTDIvol) and the Dose Length Product (DLP), and are measured in units of mGy and mGy-cm, respectively. These indicators are not patient dose, but values generated from the CT scanner acquisition factors. The report includes radiation exposure data for exposures received during this examination. COMPARISON: CT STROKE CTH on DOS: 12/25/24 FINDINGS: There is no evidence of acute intracranial hemorrhage, extra-axial collection, mass effect, midline s hift, herniation or hydrocephalus. The ventricles, sulci and cisterns are age appropriate. The blancas-white differentiation is intact. Patchy periventricular and subcortical white matter hypoattenuation is nonspecific but may be related to small vessel ischemic disease. The visualized paranasal sinuses and mastoid air cells are clear. The surrounding soft tissues and osseous structures are unremarkable. IMPRESSION: 1. No acute intracranial abnormality. 2. Chronic microvascular ischemic changes. Radiation optimization: All CT scans at this facility use at least one of these dose optimization fly hniques: automated exposure control mA and/or kV adjustment per patient size (includes targeted exam s where dose is matched to clinical indication) or iterative reconstruction.
[2025-01-21 23:50] VITALS: PULSE 28; RESP 14; O2SAT 94
[2025-01-22] VITALS (12 sets, daily range): BP systolic 137–180; BP diastolic 50–88; PULSE 60–89; RESP 13–19; TEMP 97.9–98.9; O2SAT 94–100
[2025-01-22] MEDS: cefTRIAXone 1GM/50ML D5W 50 ML IV ONE (02:23)
[2025-01-22] MEDS ORDERED: MORPHINE SULFATE INJ 2 MG/ml SYRG IV PRN (03:00)
[2025-01-22] MEDS ORDERED: ALBUTEROL SULF 2.5 MG/0.5ML(0.5%) NEB SOLN NEB PRN (03:00)
[2025-01-22] MEDS ORDERED: NITROGLYCERIN 0.4 MG SL TAB SL PRN (03:00)
[2025-01-22 03:14] LABS: Urine Protein, UAD Negative (Negative)
[2025-01-22 03:19] LABS: Chloride 105 mmol/L (98-107); Potassium 3.9 mmol/L (3.5-5.1); Sodium 140 mmol/L (136-145)
[2025-01-22 03:20] LABS: Anion Gap 11 (5-15); Carbon Dioxide 24 mmol/L (20-31)
[2025-01-22 03:23] LABS: Calcium 10.6 mg/dL (8.7-10.4)
[2025-01-22 03:25] LABS: BUN/Creatinine Ratio 31.0 (10.0-20.0); Blood Urea Nitrogen 22 mg/dL (9-23); Glucose 100 mg/dL (74-106)
[2025-01-22] MEDS: AZITHROMYCIN 500MG/ 250ML 250 ML IV ONE (03:30)
--- NOTE | 2025-01-22 03:53 | DVHHP2 ---
History of Present Illness Reason for Visit: Altered mental status History of Present Illness 84-year-old female presents for evaluation of altered mental status. Patient with a history of dementia presents from [facility] for evaluation of altered mental status. Apparently the patient has h ad decreased oral intake for the past two days. She was recently treated for UTI two days ago. No further history could be obtained at the moment. Patient not answering questions, no family present. Past Medical History Dyslipidemia, AFib, dementia, hypertension Past Surgical History Pacemaker Family History Noncontributory Smoke: No ALCOHOL: none Drugs: None Lives: Retirement Review of Systems Review of Systems Review of systems are currently negative otherwise addressed in HPI. Allergies: Coded Allergies: NO KNOWN ALLERGIES (Unverified , 12/25/24) Medications Current Medications Medications Dose Ordered Sig/Yovani Route Start Time Stop Time Status Last Admin Dose Admin Ceftriaxone Sodium 50 ml @ 100 mls/hr DAILY@09 IV 01/22/25 09:00 Azithromycin 250 ml @ 125 mls/hr DAILY IV 01/22/25 10:00 Metoprolol Tartrate 25 mg BID PO 01/22/25 10:00 Losartan Potassium 50 mg DAILY PO 01/22/25 10:00 Memantine 10 mg DAILY PO 01/22/25 10:00 Patient Own Medication 75 mg BID PO 01/22/25 10:00 UNV Patient Own Medication 20 mg DAILY PO 01/22/25 10:00 UNV Ondansetron HCl 4 mg Q4HP PRN IV 01/22/25 03:00 Acetaminophen 650 mg Q6HP PRN PO 01/22/25 03:00 Nitroglycerin 0.4 mg Q5MINP PRN SL 01/22/25 03:00 Morphine Sulfate 2 mg Q30M PRN IV 01/22/25 03:00 Albuterol 2.5 mg Q6HPRN PRN NEB 01/22/25 03:00 Patient Own Medication 20 mg DAILY PO 01/22/25 10:00 UNV Exam Vital Signs Vital Signs Date Time Temp Pulse Resp B/P (MAP) Pulse Ox O2 Delivery O2 Flow Rate FiO2 01/22/25 03:22 98.2 89 17 180/88 94 0.0 21 98.2 01/22/25 03:12 Room Air Exam Gen: 84-year-old female in mild Skin: Warm, dry, normal color and texture, no rash. HEENT: Normocephalic atraumatic, mucous membranes moist and pink. Neck: Cervical and supraclavicular nodes normal without enlargement, trachea is midline, thyroid gland is normal without masses. Pulmonary: Clear to auscultation and percussion bilaterally. Cardiac: Regular rate and rhythm. No murmur Abdomen: Soft, nontender, nondistended, bowel sounds present all 4 quadrants, no guarding, no rigidity, no organomegaly. Extremities: No cyanosis, clubbing, no edema Neuro: Cranial nerves II through XII grossly intact, altered Labs/Xrays ORDERING PHYSICIAN: ALYSHA PERRY MD PROCEDURE(s): CXRP - CHEST PORTABLE REASON: SOB ORDER NUMBER(s): [id number], ACCESSION NUMBER(s): [id number] CHEST RADIOGRAPH Indication: SOB Technique: Single frontal view of the chest was obtained COMPARISON: XY CHEST PORTABLE on DOS: 12/26/24 FINDINGS: Lines and Tubes: None. Left anterior chest wall cardiac pacing device. Lungs: Mild left basilar infiltrate and/or atelectasis. The remaining lung zones are clear. No evidence of focal consolidation. Pleura: No effusion. No pneumothorax. Cardiomediastinal contours: Unremarkable. Atherosclerotic vascular calcifications. Bones: Unremarkable IMPRESSION: 1. Mild left basilar infiltrate and/or atelectasis. ORDERING PHYSICIAN: ALYSHA PERRY MD PROCEDURE(s): HWOCT - HEAD WITHOUT CONTRAST REASON: ALOC ORDER NUMBER(s): [id number], ACCESSION NUMBER(s): [id number] EXAM: CT HEAD WITHOUT CONTRAST INDICATION: ALOC TECHNIQUE: CT of the head without intravenous contrast. Radiation Dose : 1. Head: CT Dose: CTDI volume is 51 mGy. Dose-length product is 902 mGy*cm The dose indicators for CT are the volume Computed Tomography (CT) Dose Index (CTDIvol) and the Dose Length Product (DLP), and are measured in units of mGy and mGy-cm, respectively. These indicators are not patient dose, but values generated from the CT scanner acquisition factors. The report includes radiation exposure data for exposures received during this examination. COMPARISON: CT STROKE CTH on DOS: 12/25/24 FINDINGS: There is no evidence of acute intracranial hemorrhage, extra-axial collection, mass effect, midline shift, herniation or hydrocephalus. The ventricles, sulci and cisterns are age appropriate. The blancas-white differentiation is intact. Patchy periventricular and subcortical white matter hypoattenuation is nonspecific but may be related to small vessel ischemic disease. The visualized paranasal sinuses and mastoid air cells are clear. The surrounding soft tissues and osseous structures are unremarkable. IMPRESSION: 1. No acute intracranial abnormality. 2. Chronic microvascular ischemic changes. Radiation optimization: All CT scans at this facility use at least one of these dose optimization techniques: automated exposure control mA and/or kV adjustment per patient size (includes targeted exams where dose is matched to clinical indication) or iterative reconstruction. Labs Test 01/22/25 02:36 01/22/25 02:11 01/21/25 23:04 Range/Units Urine Color Light-yellow Yellow Urine Clarity Clear Clear Urine pH 6.5 5.0-9.0 Urine Specific [place] 1.018 1.001-1.035 Urine Protein Negative Negative Urine Ketones 1+ H Negative Urine Blood Negative Negative /uL Urine Nitrite Negative Negative Urine Bilirubin Negative Negative Urine Urobilinogen Normal Negative mg/dL Urine Leukocyte Esterase Negative Negative /uL Urine RBC 2 0 - 4 /hpf Urine Microscopic WBC 2 0-5 /HPF Urine Squamous Epithelial Cells Few <5 /hpf Urine Bacteria Few H None Seen /hpf Urine Glucose Trace Normal mg/dL Sodium Level 140 136-145 mmol/L Potassium Level 3.9 3.5-5.1 mmol/L Chloride Level 105 98-107 mmol/L Carbon Dioxide Level 24 20-31 mmol/L Anion Gap 11 5-15 Blood Urea Nitrogen 22 9-23 mg/dL Creatinine 0.71 0.550-1.02 mg/dL Glomerular Filtration Rate Calc 84 >90 mL/min BUN/Creatinine Ratio 31.0 H 10.0-20.0 Serum Glucose 100 74-106 mg/dL Calcium Level 10.6 H 8.7-10.4 mg/dL Troponin I High Sensitivity 76 *H </=34 ng/L White Blood Count 16.3 H 4.4-10.8 10^3/uL Red Blood Count 5.44 H 4.0-5.20 10^6/uL Hemoglobin 15.4 12.2-16.2 g/dL Hematocrit 46.0 36.0-46.0 % Mean Corpuscular Volume 84.6 80.0-100.0 fL Mean Corpuscular Hemoglobin 28.2 28.0-32.0 pg Mean Corpuscular Hemoglobin Concent 33.4 32.0-36.0 g/dL Red Cell Distribution Width 14.4 H 11.8-14.3 % Platelet Count 336 140-450 10^3/uL Mean Platelet Volume 7.6 6.9-10.8 fL Neutrophils (%) (Auto) 86.9 H 37.0-80.0 % Lymphocytes (%) (Auto) 7.1 L 10.0-50.0 % Monocytes (%) (Auto) 5.5 0.0-12.0 % Eosinophils (%) (Auto) 0.1 0.0-7.0 % Basophils (%) (Auto) 0.4 0.0-2.0 % Neutrophils # (Auto) 14.1 H 1.6-8.6 10 ^3/uL Lymphocytes # (Auto) 1.2 0.4-5.4 10 ^3/uL Monocytes # (Auto) 0.9 0-1.3 10 ^3/uL Eosinophils # (Auto) 0 0-0.8 10 ^3/uL Basophils # (Auto) 0.1 0-0.2 10 ^3/uL Nucleated Red Blood Cells 0.0 % Lactic Acid Level 1.1 0.4-2.0 mmol/L Magnesium Level 2.2 1.6-2.6 mg/dL Total Bilirubin 0.9 0.2-1.0 mg/dL Aspartate Amino Transferase (AST) 22 13-40 U/L Alanine Aminotransferase (ALT) 14 7-40 U/L Alkaline Phosphatase 87 46-116 U/L Total Protein 7.3 5.7-8.2 g/dL Albumin 4.4 3.2-4.8 g/dL SEPSIS Sepsis Screen Date sepsis recognized/suspect: Jan 21, 2025 Time Sepsis recognized/suspect: 2234 Recent Procedure: No On Antibiotic Therapy: No Respiratory Rate >20: No Heart Rate >90: Yes Temp<36 C (96.8 F) or >38.3 C: No SBP <90 or MAP <65 mmHG: No New Acute Mental Status Change: No Is the patient on CPAP, BIPAP,: No Physician Orders Blood Culture (01/21/25 22:40) Chest Portable (01/21/25 22:40) Head Without Contrast (01/21/25 22:40) Ceftriaxone 1gm/50ml D5w (Rocephin) (01/22/25 09:00) Azithromycin 500mg/ 250ml (Zithromax 50 (01/22/25 10:00) Metoprolol Tartrate Tablet (Lopressor Ta (01/22/25 10:00) Losartan Tablet (Cozaar Tablet) (01/22/25 10:00) Memantine Tablet (Namenda Tablet) (01/22/25 10:00) (Nf) Pradaxa (01/22/25 10:00) Admit (01/22/25 02:57) Ondansetron Hcl (Zofran) (01/22/25 03:00) Cardiac Diet-2gna,Lofat,Lochol (01/22/25 Breakfast) Condition: Fair (01/22/25 02:57) Acetaminophen Tablet (Tylenol Tablet) (01/22/25 03:00) Bedrest With Bathroom Privileg (01/22/25 02:57) Nitroglycerin Sublingual (Ntrostat Subli (01/22/25 03:00) Morphine Sulfate Injection (01/22/25 03:00) Stat Ekg For Chest Pain (01/22/25 02:57) Notify Md Of Changes From Base (01/22/25 02:57) Sole Skiver For 24 Hours (01/22/25 02:57) Emergency Dysrhythmia Protocol (01/22/25 02:57) Rhythm Strips Once Every Shift (01/22/25 02:57) Oxygen By Nasal Cannula (01/22/25 02:57) Albuterol Medneb (Ventolin Medneb) (01/22/25 03:00) Insert Parker Catheter QSHIFT (01/22/25 03:29) (Nf) Telmisartan (01/22/25 10:00) Vital Signs Date Time Temp Pulse Resp B/P (MAP) Pulse Ox O2 Delivery O2 Flow Rate FiO2 01/22/25 03:22 98.2 89 17 180/88 94 0.0 21 98.2 01/22/25 03:12 94 Room Air 0.0 01/22/25 03:12 94 Room Air* 0 21 01/21/25 22:50 89 01/21/25 22:37 89 01/21/25 22:35 98.2 103 17 180/88 (118) 97 98.2 Laboratory Tests Test 01/21/25 23:04 Lactic Acid Level 1.1 mmol/L (0.4-2.0) White Blood Count 16.3 10^3/uL (4.4-10.8) H Medications Medications Dose Ordered Sig/Yovani Route Start Time Stop Time Status Last Admin Dose Admin Ceftriaxone Sodium 50 ml @ 100 mls/hr ONCE ONCE IV 01/22/25 00:00 01/22/25 00:29 DC 01/22/25 02:23 100 MLS/HR Sodium Chloride 1,000 ml @ 1,000 mls/hr Q1H ONCE IVB 01/21/25 22:45 01/21/25 23:44 DC 01/21/25 22:45 1,000 MLS/HR Assessment/Plan Assessment/Plan Assessment Metabolic encephalopathy Community-acquired pneumonia Dementia Elevated troponin Plan Admit the patient to telemetry to the hospitalist Rocephin/azithromycin Resume home medications Continue treatment per orders. Plan discussed with: Other My Orders Orders - TERRY SALAZAR Procedure Category Date Status Time Ceftriaxone 1gm/50ml PHA 01/22/25 In Process D5w (Rocephin) 09:00 Azithromycin 500mg/ PHA 01/22/25 In Process 250ml (Zithromax 50 10:00 Metoprolol Tartrate PHA 01/22/25 In Process Tablet (Lopressor Ta 10:00 Losartan Tablet PHA 01/22/25 In Process (Cozaar Tablet) 10:00 Memantine Tablet PHA 01/22/25 In Process (Namenda Tablet) 10:00 (Nf) Pradaxa PHA 01/22/25 Pending 10:00 Admit ADMIT 01/22/25 Transmitted 02:57 Ondansetron Hcl PHA 01/22/25 In Process (Zofran) 03:00 Cardiac DIET 01/22/25 Transmitted Diet-2gna,Lofat,Lochol Breakfast Condition: Fair JOANNE 01/22/25 In Process 02:57 Acetaminophen Tablet PHA 01/22/25 In Process (Tylenol Tablet) 03:00 Bedrest With Bathroom JOANNE 01/22/25 In Process Privileg 02:[address] [facility] 01/22/25 In Process Sublingual (Ntrostat 03:[address] [facility] 01/22/25 In Process Injection 03:00 Stat Ekg For Chest [facility] 01/22/25 In Process Pain 02:57 Notify Of Changes [facility] 01/22/25 In Process From Base 02:57 Sole Skiver For [facility] 01/22/25 In Process 24 Hours 02:57 Emergency Dysrhythmia [facility] 01/22/25 In Process Protocol 02:57 Rhythm Strips Once [facility] 01/22/25 In Process Every Shift 02:57 Oxygen By Nasal RT 01/22/25 Transmitted Cannula 02:[address] [facility] 01/22/25 In Process (Ventolin Medneb) 03:00 (Nf) Telmisartan [facility] 01/22/25 Pending 10:00 Date of Service: Jan 22, 2025 Billing Provider: TERRY SALAZAR Common Visit Codes: [id number] INP/OBS CARE (HIGH) TERRY SALAZAR Jan 22, 2025 03:53
[2025-01-22] MEDS: ATORVASTATIN 20 MG TAB PO ONE (08:30)
--- NOTE | 2025-01-22 08:51 | DVHPNRES ---
Progress Note Date Seen: Jan 22, 2025 Resident Creating Document: STEPHANI JERNIGAN RESIDENT Medical Necessity Reason Pt with a Central, PICC or Fol: No Subjective Patient reports: No new complaints Changes from previous H/P or p: No Changes Objective vital signs Vital Sign Date Time Temp Pulse Resp B/P (MAP) Pulse Ox O2 Delivery O2 Flow Rate FiO2 01/22/25 07:38 60 16 179/56 (97) 93 01/22/25 03:22 98.2 0.0 21 98.2 01/22/25 03:12 Room Air medications Current Medications Medications Dose Ordered Sig/Yovani Route Start Time Stop Time Status Last Admin Dose Admin Ceftriaxone Sodium 50 ml @ 100 mls/hr DAILY@09 IV 01/22/25 09:00 Azithromycin 250 ml @ 125 mls/hr DAILY IV 01/22/25 10:00 Metoprolol Tartrate 25 mg BID PO 01/22/25 10:00 Losartan Potassium 50 mg DAILY PO 01/22/25 10:00 Memantine 10 mg DAILY PO 01/22/25 10:00 Patient Own Medication 20 mg DAILY PO 01/22/25 10:00 UNV Ondansetron HCl 4 mg Q4HP PRN IV 01/22/25 03:00 Acetaminophen 650 mg Q6HP PRN PO 01/22/25 03:00 Nitroglycerin 0.4 mg Q5MINP PRN SL 01/22/25 03:00 Morphine Sulfate 2 mg Q30M PRN IV 01/22/25 03:00 Albuterol 2.5 mg Q6HPRN PRN NEB 01/22/25 03:00 Dabigatran 150 mg BID PO 01/22/25 10:00 Atorvastatin Calcium 40 mg HS PO 01/23/25 22:00 Lactated Ringer's 1,000 ml @ 75 mls/hr [id number] IV 01/22/25 08:45 Examination: GENERAL:Normal, HEENT:Abnormal (oral mucosa dry), NECK:Normal, LUNGS:Abnormal (crac kles 3 lnc ), CVS:Normal, ABDOMEN:Normal, MSK:Abnormal (new onset of 1+ trace pedal edeam b/l), SKIN:Normal, NEURO:Abnormal (alert but not oriented, not responding to verbal questions. ) laboratory and microbiology Test 01/22/25 02:11 Range/Units Serum Glucose Pending Labs and/or images reviewed: Labs reviewed by me, Image(s) reviewed by me Problem List/Assessment/Plan Problem List/Assessment/Plan Ms. Valerio, 84-year-old female with a history of dementia, paroxysmal atrial fibrillation, hypertension, and dyslipidemia, and a pacemaker in place, was brought from a nursing facility in [place] for evaluation of altered mental status with the acute hypoxic respiratory failure, community-acquired pneumonia, type 2 NSTEMI, altered level of consciousness, poor oral intake, and dehydration. History was on unobtainable, further collateral history to be taken, patient is admitted in hospital for in-hospital management. #Paroxysmal A fib on Pradaxa, chads Vasc 4: continue Pradaxa, metoprolol tartrate 25 mg p.o. b.i.d. target heart rate 80-110 as per RACE II trial #recent UTI noted around 12/27, UA unremarkable in this presentation: Culture positive for E coli with resistant to ampicillin, ciprofloxacin and TMP SMX #acute hypoxic respiratory failure: On 3 L of nasal cannula oxygen, no respiratory distress noted. #community-acquired pneumonia Gram-positive /Gram-negative/Atypical : Continue azithromycin ceftriaxone #sepsis secondary to above: Presenting WBC 16.3, tachycardia, predominant neutrophilia, with lymphopenia, #Type 2 NSTEMI: 67, 73, 76 tropes, could be due to uncontrolled hypertension, Sinus rhythm, Nonspecific repol abnormality, diffuse leads Echo, BNP pending. #acute encephalopathy toxic versus metabolic: Multifactorial likely due to poor oral intake, ALOC, alert yet orientation 0, not communicating to verbal questioning. Delirium precautions, fall precautions. 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 #Vitamin B12 deficiency: 204, B12 and Folate recehcked. was on supplementation. #starvation ketonuria, dehydration, gentle hydration to continue #Progressive Dementia: Ruled out hemorrhagic stroke CT negative , on home memantine 10 mg daily, NPO except medications, likely worsening dementia versus delirium: Delirium precaution fall precaution and aspiration precautions to continue. #hypertensive urgency/emergency: Presented with 180/88, home medications include losartan 50 mg, Lopressor 25 mg, Hydrochlorothiazide 25 mg, patient is NPO, started the patient on hydralazine 10 mg q.6 scheduled IV for now. #anxiety, depression: buspirone 15 mg daily #urgency incontinence: UTI vs dementia vs age related. oxybutynin 10 mg daily. Check bladder scan! #age-appropriate osteoarthritis, denies any acute pain, recurrent fall >6 times in past 1 month. PT. Discussed with patient's family/next kin changed to DNR DNI. Goals of care and care plan needed total 29 minutes at bedside. Discussed with Dr. Fox. Plan discussed with: Other (Primary team, RN.) My Orders My Orders Orders - STEPHANI JERNIGAN RESIDENT Procedure Category Date Status Time Complete Blood Count LAB 01/22/25 Logged 08:29 Comprehensive LAB 01/22/25 In Process Metabolic Panel 08:29 Magnesium LAB 01/22/25 In Process 08:29 Covid19 Antigen [place] LAB 01/22/25 Logged Rapid Influenza A&B LAB 01/22/25 Logged 08:29 Echo 2d Mode Cardiac US 01/22/25 Logged DOP 08:31 Lactate Dehydrogenase LAB 01/22/25 In Process 08:31 Lactic Acid W/ Reflex LAB 01/22/25 Logged Order 08:31 B-Type Natriuretic LAB 01/22/25 Logged Peptide 08:31 Thyroid Stimulating LAB 01/22/25 In Process Hormone 08:31 Vitamin B12 LAB 01/22/25 In Process 08:31 Folate (Folic Acid) LAB 01/22/25 In Process 08:32 Lactated Ringer's PHA 01/22/25 In Process 08:45 Fall Precautions JOANNE 01/22/25 In Process Initiated 08:35 Fall Risk Precautions JOANNE 01/22/[address] 08:35 Communication Order ORDERS 01/22/25 Transmitted 08:35 Pt Request For Service PT 01/22/25 Logged 08:36 Atorvastatin (Lipitor) PHA 01/23/25 In Process 22:00 Labetalol Hcl PHA 01/22/25 Logged (Labetalol Hcl) 08:45 Date of Service: Jan 22, 2025 Billing Provider: KEVIN FOX MD Common Visit Codes: [id number] INP/OBS CARE(HIGH) STEPHANI JERNIGAN RESIDENT Jan 22, 2025 08:51 KEVIN FOX MD Jan 25, 2025 13:34
[2025-01-22 09:13] LABS: Alanine Aminotransferase 17.0 U/L (7-40); Alkaline Phosphatase 88.0 U/L (46-116); Magnesium 2.2 mg/dL (1.6-2.6); Total Protein 7.5 g/dL (5.7-8.2)
[2025-01-22 09:14] LABS: Albumin 4.6 g/dL (3.2-4.8); Bilirubin, Direct 0.3 mg/dL (<0.3); Bilirubin, Total 0.9 mg/dL (0.2-1.0)
[2025-01-22] MEDS: DABIGATRAN 75 MG CAP PO SCH (10:00)
[2025-01-22] MEDS: MEMANTINE HCL 5 MG TAB PO SCH (10:00)
[2025-01-22] MEDS: METOPROLOL TARTRATE 25 MG TAB PO SCH (10:00)
[2025-01-22] MEDS: LOSARTAN POTASSIUM 50 MG TAB PO SCH (10:00)
[2025-01-22] MEDS ORDERED: LOSARTAN POTASSIUM 25 MG TAB PO SCH ×2 (10:00)
[2025-01-22] MEDS ORDERED: TELMISARTAN 20 MG PO SCH ×2 (10:00)
[2025-01-22 10:05] LABS: Hematocrit 42.4 % (36.0-46.0); Hemoglobin 14.3 g/dL (12.2-16.2); Mean Corpuscular Hemoglobin 28.1 pg (28.0-32.0); Mean Corpuscular Volume 83.6 fL (80.0-100.0); Nucleated Red Blood Cells % 0.0 %
[2025-01-22] MEDS: cefTRIAXone 1GM/50ML D5W 50 ML IV SCH (10:34)
[2025-01-22] MEDS: LACTATED RINGER'S 1,000 ML IV SCH (10:35)
[2025-01-22] MEDS: AZITHROMYCIN 500MG/ 250ML 250 ML IV SCH (10:35)
[2025-01-22] MEDS: LABETALOL HCL 20 MG/4 ML VL IV ONE (10:54)
[2025-01-22 11:38] LABS: Thyroid Stimulating Hormone 4.6 uIU/mL (0.55-4.78)
[2025-01-22 11:39] LABS: COVID19 ANTIGEN SOFIA FIA NEGATIVE (NEGATIVE)
--- NOTE | 2025-01-22 14:28 | DVHSR ---
APPROVED REPORT EXAM: Two-dimensional and M-mode echocardiogram with Doppler and color Doppler. Blood Pressure: 179/56 mmHg INDICATION Structural heart disease RISK FACTORS Height: 5'7", Weight: 180 DIMENSIONS LVDd3.6 (3.8-5.7cm)LA (2D)3.6 (1.9-4.0cm)Aortic Root2.6 (2.0-3.7cm) LVDs1.8 (2.5-4.0cm)LA (MM) (1.9-4.0cm)Aortic Cusp Exc1.1 (1.5-2.0cm) EF (%) 81.0 (55-70%)Rt. Atrium4.1 (1.9-4.0cm)Asc. Aorta cm IVSd1.5 (0.7-1.1cm)RV (D)3.7 (1.8-2.4cm) PWd1.4 (0.7-1.1cm) Mitral Valve MitralMitral Stenosis E wave0.61m/sMV Mean GR.mmHg A wave0.82m/sMV Peak GR.mmHg E/A ratio0.72D MVAcm2 DECEL [id number] 1/2 Timems Aortic Valve Aortic ValveAortic Stenosis V10.98m/Brook Mean GR.6mmHg V21.82m/Brook Peak GR.13mmHg LVOT Diameter1.9 (1.8-2.4cm)Doppler AVA1.53cm2 AI P 1/2 Tmxp230.31ms Pulmonic Valve V20.86m/s Tricuspid Valve TR Velocity2.94m/s [id number] Other Information Quality : Technically LimitedRhythm : Technically limited study due to patient position. Conclusion lvef 65% moderate LVH left atrium enlarged mild pacng lead in RV moderate tricuspid regurg moderate to severe pulm htn, mild to moderate aortic regurg
[2025-01-22] MEDS: hydrALAZINE HCL 20 MG/ML VL IV SCH (15:00)
[2025-01-23] VITALS (10 sets, daily range): BP systolic 122–176; BP diastolic 45–99; PULSE 61–102; RESP 16–100; TEMP 97.9–98.8; O2SAT 18–100
--- NOTE | 2025-01-23 08:52 | DVHPNRES ---
Progress Note Date Seen: Jan 23, 2025 Resident Creating Document: STEPHANI JERNIGAN RESIDENT Medical Necessity Reason Pt with a Central, PICC or Fol: No Subjective Patient reports: No new complaints, Feels better Changes from previous H/P or p: No Changes Objective vital signs Vital Sign Date Time Temp Pulse Resp B/P (MAP) Pulse Ox O2 Delivery O2 Flow Rate FiO2 01/23/25 07:31 99 Nasal Cannula* 3 32 01/23/25 05:35 175/62 01/23/25 04:41 97.9 66 100 97.9 Total Intake and Output 01/22/25 01/22/25 01/23/25 15:00 23:00 07:00 Intake Total 375 ml 0 ml 525 ml Output Total 100 ml 275 ml Balance 375 ml -100 ml 250 ml medications Current Medications Medications Dose Ordered Sig/Yovani Route Start Time Stop Time Status Last Admin Dose Admin Ceftriaxone Sodium 50 ml @ 100 mls/hr DAILY@09 IV 01/22/25 09:00 01/22/25 10:34 100 MLS/HR Azithromycin 250 ml @ 125 mls/hr DAILY IV 01/22/25 10:00 01/22/25 10:35 125 MLS/HR Metoprolol Tartrate 25 mg BID PO 01/22/25 10:00 Losartan Potassium 50 mg DAILY PO 01/22/25 10:00 Memantine 10 mg DAILY PO 01/22/25 10:00 Patient Own Medication 20 mg DAILY PO 01/22/25 10:00 UNV Ondansetron HCl 4 mg Q4HP PRN IV 01/22/25 03:00 Acetaminophen 650 mg Q6HP PRN PO 01/22/25 03:00 Nitroglycerin 0.4 mg Q5MINP PRN SL 01/22/25 03:00 Morphine Sulfate 2 mg Q30M PRN IV 01/22/25 03:00 Albuterol 2.5 mg Q6HPRN PRN NEB 01/22/25 03:00 Dabigatran 150 mg BID PO 01/22/25 10:00 Atorvastatin Calcium 40 mg HS PO 01/23/25 22:00 Lactated Ringer's 1,000 ml @ 75 mls/hr [id number] IV 01/22/25 08:45 01/23/25 05:36 75 MLS/HR Hydralazine HCl 10 mg Q6HR IV 01/22/25 15:00 01/23/25 05:35 10 MG Examination: GENERAL:Normal (more awake), HEENT:Normal (still dry mucosa), NECK:Normal, LUNGS:Normal, LUNGS:Abnormal (basal rales and crackles mostly on the left lower side, 3 L NC), CVS:Normal, ABDOMEN:Normal (soft, no guarding or rigidity. ), MSK:Abnormal (3+ strength in all extremities (not entirely can follow instructions though )), SKIN:Normal, NEURO:Abnormal (alert, more responsive but still not oriented. responds to light and sound. ) laboratory and microbiology Laboratory Tests 01/22/25 09:01 01/22/25 02:11 Test 01/22/25 02:11 Range/Units Serum Glucose 100 74-106 mg/dL Microbiology Date/Time Source Procedure Growth Status 01/21/25 23:04 Blood Blood Culture - Preliminary NO GROWTH AFTER 24 HOURS OF INCUBATION. Resulted Labs and/or images reviewed: Labs reviewed by me, Image(s) reviewed by me Problem List/Assessment/Plan Problem List/Assessment/Plan Ms. Valerio, 84-year-old female with a history of dementia, paroxysmal atrial fibrillation, hypertension, and dyslipidemia, and a pacemaker in place, was brought from a nursing facility in [place] for evaluation of altered mental status with the acute hypoxic respiratory failure, community-acquired pneumonia, type 2 NSTEMI, altered level of consciousness, poor oral intake, and dehydration. History was on unobtainable, further collateral history to be taken, patient is admitted in hospital for in-hospital management. #C. diff positive: physical exam -ve for guarding or toxic megacolon picture. 3x watery stool overall yesterday. as per family first diagnosis. oral vancomycin is not reliable given poor oral intake. iv flagyl started. look for abx associated diarrhea. will hold Florastor as of now. isolation. [place] precautions. #LVH, likely due to uncontrolled HTN, BNP unremarkable Echo TTE 65% LVEF, still hypovolumic #Poor PO intake: starvation ketonuria, dehydration, gentle iv hydration to continue, follow up labs. added ensure and diet started. #hypertensive urgency/emergency: Presented with 180/88, home medications include losartan 50 mg, Lopressor 25 mg, Hydrochlorothiazide 25 mg, patient is NPO, started the patient on hydralazine 10 mg q.6 scheduled IV for now. added amlodipine 10 mg oral daily target bp 140/90. #anxiety, depression: buspirone 15 mg daily #acute encephalopathy toxic versus metabolic: Multifactorial likely due to poor oral intake, ALOC, alert yet orientation 0, not communicating to verbal questioning. Delirium precautions, fall precautions. Continue NPO, aspiration risk, frequent reorientation, avoid Beer's criteria drugs. #urgency incontinence: UTI vs dementia vs age related. hold oxybutynin 10 mg daily. Check bladder scan! continue diaper. #age-appropriate osteoarthritis: denies any acute pain, recurrent fall >6 times in past 1 month. PT evaluation. #Mild to moderate protein energy malnutrition: related to worsening dementia, family discussion on feeding options discussed with next keen. will add high protein supplements when safe. frequent bed position change and air mattress. high risk of pressure ulcer. #Paroxysmal A fib on Pradaxa, chads Vasc 4: continue Pradaxa, metoprolol tartrate 25 mg p.o. b.i.d. target heart rate 80-110 as per RACE II trial #recent UTI noted around 12/27, UA unremarkable in this presentation: Culture positive for E coli with resistant to ampicillin, ciprofloxacin and TMP SMX #acute hypoxic respiratory failure: On 3 L>>1.5 of nasal cannula oxygen, no respiratory distress noted, wean as tolerated to keep SPO2>94%. #community-acquired pneumonia Gram-positive /Gram-negative/Atypical : Continue azithromycin ceftriaxone, covid and influenza -ve MRSA pending. continue iv abx. avoid aspiration. #sepsis secondary to above: Presenting WBC 16.3, tachycardia, predominant neutrophilia, with lymphopenia, improving -ve lactate. #Type 2 NSTEMI: 67, 73, 76 tropes, could be due to uncontrolled hypertension, Sinus rhythm, Nonspecific repol abnormality. 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 #Vitamin B12 deficiency: 204, B12 and Folate rechecked. was on supplementation. levels stable. #Progressive Dementia: Ruled out hemorrhagic stroke CT negative , on home memantine 10 mg daily, NPO except medications, likely worsening dementia versus delirium: Delirium precaution fall precaution and aspiration precautions to continue. Discussed with patient's family/next kin changed to DNR DNI. Goals of care and care plan needed total 29 minutes at bedside. Updated daughter at bedside. Discussed with Dr. Fox. Plan discussed with: Patient, Daughter, Other (primary team. ) My Orders My Orders Orders - STEPHANI JERNIGAN RESIDENT Procedure Category Date Status Time Bladder Scan ED NURSING 01/22/25 Transmitted Npo Except For JOANNE 01/22/25 In Process Medications 08:47 Hydralazine Injection PHA 01/22/25 In Process (Apresoline Inject 15:00 Strict Aspiration JOANNE 01/22/25 In Process Precautions 14:53 Complete Blood Count LAB 01/23/25 Logged 08:35 Basic Metabolic Panel LAB 01/23/25 Logged 08:35 Mrsa Screen DEBBY 01/23/25 Uncollected 08:37 Dietary Evaluation Review Comments: 1) TPN if NPO > 5 days 2) Advance diet as medically feasible 3) Consider Ensure Enlive 240ml TID 4) Monitor wt trend, lab values, skin trend, I/O Expected Outcomes/Goals: To meet >75% estimated needs Fu 2-3 days Date of Service: Jan 23, 2025 Billing Provider: KEVIN FOX MD Common Visit Codes: [id number] INP/OBS CARE(HIGH) STEPHANI JERNIGAN RESIDENT Jan 23, 2025 08:52 KEVIN FOX MD Jan 25, 2025 13:38
[2025-01-23] MEDS: hydrALAZINE HCL 20 MG/ML VL IV SCH (11:23)
[2025-01-23 11:30] LABS: Hematocrit 39.4 % (36.0-46.0); Hemoglobin 13.0 g/dL (12.2-16.2); Mean Corpuscular Hemoglobin 28.5 pg (28.0-32.0); Mean Corpuscular Volume 86.2 fL (80.0-100.0); Nucleated Red Blood Cells % 0.1 %
[2025-01-23 11:37] LABS: Chloride 106 mmol/L (98-107); Potassium 3.7 mmol/L (3.5-5.1); Sodium 141 mmol/L (136-145)
[2025-01-23 11:38] LABS: Anion Gap 9 (5-15); Carbon Dioxide 26 mmol/L (20-31)
[2025-01-23 11:43] LABS: BUN/Creatinine Ratio 25.5 (10.0-20.0); Blood Urea Nitrogen 14 mg/dL (9-23); Glucose 103 mg/dL (74-106)
[2025-01-23 11:44] LABS: Calcium 10.7 mg/dL (8.7-10.4)
[2025-01-23] MEDS: Ensure HIGH Protein Chocolate 8oz Bottle PO SCH (18:29)
[2025-01-23] MEDS: ATORVASTATIN 20 MG TAB PO SCH (22:00)
[2025-01-24] VITALS (10 sets, daily range): BP systolic 140–169; BP diastolic 35–119; PULSE 61–108; RESP 16–20; TEMP 98.4–99.1; O2SAT 94–100
--- NOTE | 2025-01-24 09:59 | DVHPNRES ---
Progress Note Date Seen: Jan 24, 2025 Resident Creating Document: STEPHANI JERNIGAN RESIDENT Medical Necessity Reason Pt with a Central, PICC or Fol: No Objective vital signs Vital Sign Date Time Temp Pulse Resp B/P (MAP) Pulse Ox O2 Delivery O2 Flow Rate FiO2 01/24/25 08:56 98.9 83 19 140/119 (126) 94 98.9 01/24/25 06:08 Nasal Cannula 2.0 01/24/25 06:08 28 Total Intake and Output 01/23/25 01/23/25 01/24/25 15:00 23:00 07:00 Intake Total 300 ml 0 ml 100 ml Output Total 350 ml 100 ml Balance 300 ml -350 ml 0 ml medications Current Medications Medications Dose Ordered Sig/Yovani Route Start Time Stop Time Status Last Admin Dose Admin Ceftriaxone Sodium 50 ml @ 100 mls/hr DAILY@09 IV 01/22/25 09:00 01/23/25 11:15 100 MLS/HR Azithromycin 250 ml @ 125 mls/hr DAILY IV 01/22/25 10:00 01/23/25 11:15 125 MLS/HR Metoprolol Tartrate 25 mg BID PO 01/22/25 10:00 Losartan Potassium 50 mg DAILY PO 01/22/25 10:00 Memantine 10 mg DAILY PO 01/22/25 10:00 Patient Own Medication 20 mg DAILY PO 01/22/25 10:00 UNV Ondansetron HCl 4 mg Q4HP PRN IV 01/22/25 03:00 Acetaminophen 650 mg Q6HP PRN PO 01/22/25 03:00 Nitroglycerin 0.4 mg Q5MINP PRN SL 01/22/25 03:00 Morphine Sulfate 2 mg Q30M PRN IV 01/22/25 03:00 Albuterol 2.5 mg Q6HPRN PRN NEB 01/22/25 03:00 Dabigatran 150 mg BID PO 01/22/25 10:00 Atorvastatin Calcium 40 mg HS PO 01/23/25 22:00 Lactated Ringer's 1,000 ml @ 75 mls/hr [id number] IV 01/22/25 08:45 01/24/25 00:35 75 MLS/HR Hydralazine HCl 10 mg Q6HR IV 01/23/25 09:00 01/24/25 06:01 10 MG Metronidazole 100 ml @ 100 mls/hr Q8HR IV 01/23/25 15:15 01/24/25 06:02 100 MLS/HR Enteral Nutritional Formula 240 ml TIDWM PO 01/23/25 18:00 01/23/25 18:29 240 ML Amlodipine Besylate 10 mg DAILY PO 01/24/25 10:00 Examination GENERAL:Normal (Less awake than yesterday), HEENT:Normal (still dry mucosa), NECK:Normal, LUNGS:Normal, LUNGS:Abnormal (basal rales and crackles mostly on the left lower side, 1.5-2 L NC), CVS:Normal, ABDOMEN:Normal (soft, no guarding or rigidity), MSK:Abnormal (3+ strength in all extremities (not entirely can follow instructions though ), SKIN:Normal, NEURO:Abnormal (alert, responsive but still not oriented. responds to light and sound. denying further evaluation and declining food and oral hydration) as per family steep decline in past 2-3 weeks. laboratory and microbiology Laboratory Tests 01/23/25 10:52 Test 01/23/25 10:52 Range/Units Serum Glucose 103 74-106 mg/dL Microbiology Date/Time Source Procedure Growth Status 01/22/25 17:38 Stool Clostridium difficile Toxin Assay - Final Complete 01/21/25 23:04 Blood Blood Culture - Preliminary NO GROWTH AFTER 48 HOURS OF INCUBATION. Resulted Labs and/or images reviewed: Labs reviewed by me, Image(s) reviewed by me Problem List/Assessment/Plan Problem List/Assessment/Plan Ms. Valerio, 84-year-old female with a history of dementia, paroxysmal atrial fibrillation, hypertension, and dyslipidemia, and a pacemaker in place, was brought from a nursing facility in [place] for evaluation of altered mental status with the acute hypoxic respiratory failure, community-acquired pneumonia, type 2 NSTEMI, altered level of consciousness, poor oral intake, and dehydration. History was on unobtainable, further collateral history to be taken, patient is admitted in hospital for in-hospital management. #C. diff positive: physical exam -ve for guarding or toxic megacolon picture. 3x watery stool overall yesterday. as per family first diagnosis. oral vancomycin is not reliable given poor oral intake. iv flagyl continue 2/7 days + serial abdominal examination. look for abx associated diarrhea. will hold Florastor as of now. isolation. [place] precautions. #LVH, likely due to uncontrolled HTN, BNP unremarkable Echo TTE 65% LVEF, still hypovolumic continue iv hydration. #Poor PO intake: starvation ketonuria, dehydration, gentle iv hydration to continue, follow up labs. added ensure and diet started. #hypertensive urgency/emergency: Presented with 180/88, home medications include losartan 50 mg, Lopressor 25 mg, Hydrochlorothiazide 25 mg, patient is NPO, started the patient on hydralazine 10 mg q.6 scheduled IV for now. added amlodipine 10 mg oral daily target bp 140/90. #anxiety, depression: buspirone 15 mg daily #acute encephalopathy toxic versus metabolic: Multifactorial likely due to poor oral intake, ALOC, alert yet orientation 0, not communicating to verbal questioning. Delirium precautions, fall precautions. Continue NPO, aspiration risk, frequent reorientation, avoid Beer's criteria drugs. #urgency incontinence: UTI vs dementia vs age related. hold oxybutynin 10 mg daily. Check bladder scan! continue diaper. #age-appropriate osteoarthritis: denies any acute pain, recurrent fall >6 times in past 1 month. PT evaluation. #Mild to moderate protein energy malnutrition: related to worsening dementia, family discussion on feeding options discussed with next keen. will add high protein supplements when safe. frequent bed position change and air mattress. high risk of pressure ulcer. #Paroxysmal A fib on Pradaxa, chads Vasc 4: continue Pradaxa, metoprolol tartrate 25 mg p.o. b.i.d. target heart rate 80-110 as per RACE II trial #recent UTI noted around 12/27, UA unremarkable in this presentation: Culture positive for E coli with resistant to ampicillin, ciprofloxacin and TMP SMX #acute hypoxic respiratory failure: On 3 L>>1.5 of nasal cannula oxygen, no respiratory distress noted, wean as tolerated to keep SPO2>94%. #community-acquired pneumonia Gram-positive /Gram-negative/Atypical : Continue azithromycin ceftriaxone, covid and influenza -ve MRSA screening pending. continue iv abx ceftriaxone + Zithromax 08/30. avoid aspiration. #sepsis secondary to above: Presenting WBC 16.3, tachycardia, predominant neutrophilia, with lymphopenia, improving -ve lactate. #Type 2 NSTEMI: 67, 73, 76 tropes, could be due to uncontrolled hypertension, Sinus rhythm, Nonspecific repol abnormality. 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 #Vitamin B12 deficiency: 204, B12 and Folate rechecked. was on supplementation. levels stable. #Progressive Dementia: Ruled out hemorrhagic stroke CT negative , on home memantine 10 mg daily, NPO except medications, likely worsening dementia versus delirium: Delirium precaution fall precaution and aspiration precautions to continue. Downgrade to Med/Surgery. DC tele. Patient on DVT prophylaxis with full coagulation with pradaxa bid. Dietary consult for further evaluation pending (as per ASPEN 2023 update) Discussed with Infection Control team: needs whole length of stay in Isolation. Potential discharge complication with C.Diff to the facility. Encourage OOB and PT. If no further recovery in terms of cognitive function needs further GOC discussion in next 24-72 hours. Discussed with patient's family/next kin changed to DNR DNI. Goals of care and care plan needed total 29 minutes at bedside. Updated daughter at bedside. Discussed with Dr. Fox. Plan discussed with: Patient My Orders My Orders Orders - STEPHANI JERNIGAN RESIDENT Procedure Category Date Status Time Metronidazole PHA 01/23/25 In Process 500mg/100ml (Flagyl 15:15 Isolation Order ORDERS 01/23/25 Transmitted 15:06 Nutritional PHA 01/23/25 In Process Supplements (Ensure 18:00 Amlodipine Tablet PHA 01/24/25 In Process (Norvasc Tablet) 10:00 Mrsa Screen DEBBY 01/24/25 Uncollected 09:55 Complete Blood Count LAB 01/24/25 Logged 09:57 Comprehensive LAB 01/24/25 Logged Metabolic Panel 09:57 Lactic Acid W/ Reflex LAB 01/24/25 Logged Order 09:57 Dietary Evaluation Review Comments: 1) TPN if NPO > 5 days 2) Advance diet as medically feasible 3) Consider Ensure Enlive 240ml TID 4) Monitor wt trend, lab values, skin trend, I/O Expected Outcomes/Goals: To meet >75% estimated needs Fu 2-3 days Date of Service: Jan 24, 2025 Billing Provider: KEVIN FOX MD Common Visit Codes: [id number] INP/OBS CARE(HIGH) STEPHANI JERNIGAN RESIDENT Jan 24, 2025 09:59 KEVIN FOX MD Jan 25, 2025 13:56
[2025-01-24 11:45] LABS: Hematocrit 38.7 % (36.0-46.0); Hemoglobin 12.7 g/dL (12.2-16.2); Mean Corpuscular Hemoglobin 28.5 pg (28.0-32.0); Mean Corpuscular Volume 87.1 fL (80.0-100.0); Nucleated Red Blood Cells % 0.0 %
[2025-01-24 12:05] LABS: Alanine Aminotransferase 16 U/L (7-40); Albumin 3.2 g/dL (3.2-4.8); Alkaline Phosphatase 66 U/L (46-116); Anion Gap 8 (5-15); BUN/Creatinine Ratio 32.1 (10.0-20.0); Bilirubin, Total 0.6 mg/dL (0.2-1.0); Blood Urea Nitrogen 17 mg/dL (9-23); Calcium 9.6 mg/dL (8.7-10.4); Carbon Dioxide 26 mmol/L (20-31); Potassium 4.1 mmol/L (3.5-5.1); Sodium 142 mmol/L (136-145)
[2025-01-24 12:06] LABS: Chloride 108 mmol/L (98-107); Glucose 115 mg/dL (74-106); Total Protein 5.5 g/dL (5.7-8.2)
[2025-01-25] VITALS (11 sets, daily range): BP systolic 131–167; BP diastolic 43–69; PULSE 60–87; RESP 17–18; TEMP 97.8–98.8; O2SAT 93–100
--- NOTE | 2025-01-25 11:55 | DVHPNRES ---
Progress Note Date Seen: Jan 25, 2025 Resident Creating Document: STEPHANI JERNIGAN RESIDENT Medical Necessity Reason Pt with a Central, PICC or Fol: No Objective vital signs Vital Sign Date Time Temp Pulse Resp B/P (MAP) Pulse Ox O2 Delivery O2 Flow Rate FiO2 01/25/25 10:50 76 18 158/51 98 2.0 01/25/25 09:00 98.4 98.4 01/25/25 06:25 Nasal Cannula Total Intake and Output 01/24/25 01/24/25 01/25/25 15:00 23:00 07:00 Intake Total 400 ml 360 ml 1100 ml Output Total 200 ml 150 ml Balance 400 ml 160 ml 950 ml medications Current Medications Medications Dose Ordered Sig/Yovani Route Start Time Stop Time Status Last Admin Dose Admin Ceftriaxone Sodium 50 ml @ 100 mls/hr DAILY@09 IV 01/22/25 09:00 01/24/25 10:02 100 MLS/HR Azithromycin 250 ml @ 125 mls/hr DAILY IV 01/22/25 10:00 01/24/25 10:03 125 MLS/HR Metoprolol Tartrate 25 mg BID PO 01/22/25 10:00 Losartan Potassium 50 mg DAILY PO 01/22/25 10:00 Memantine 10 mg DAILY PO 01/22/25 10:00 Patient Own Medication 20 mg DAILY PO 01/22/25 10:00 UNV Ondansetron HCl 4 mg Q4HP PRN IV 01/22/25 03:00 Acetaminophen 650 mg Q6HP PRN PO 01/22/25 03:00 Nitroglycerin 0.4 mg Q5MINP PRN SL 01/22/25 03:00 Morphine Sulfate 2 mg Q30M PRN IV 01/22/25 03:00 Albuterol 2.5 mg Q6HPRN PRN NEB 01/22/25 03:00 Dabigatran 150 mg BID PO 01/22/25 10:00 Atorvastatin Calcium 40 mg HS PO 01/23/25 22:00 Lactated Ringer's 1,000 ml @ 75 mls/hr [id number] IV 01/22/25 08:45 01/25/25 03:52 75 MLS/HR Hydralazine HCl 10 mg Q6HR IV 01/23/25 09:00 01/25/25 06:16 10 MG Metronidazole 100 ml @ 100 mls/hr Q8HR IV 01/23/25 15:15 01/25/25 06:16 100 MLS/HR Enteral Nutritional Formula 240 ml TIDWM PO 01/23/25 18:00 01/24/25 18:00 240 ML Amlodipine Besylate 10 mg DAILY PO 01/24/25 10:00 laboratory and microbiology Laboratory Tests 01/24/25 11:00 Test 01/24/25 11:00 Range/Units Serum Glucose 115 H 74-106 mg/dL Microbiology Date/Time Source Procedure Growth Status 01/23/25 13:00 Nose MRSA Screen - Final Complete 01/22/25 17:38 Stool Clostridium difficile Toxin Assay - Final Complete 01/21/25 23:04 Blood Blood Culture - Preliminary NO GROWTH AFTER 72 HOURS OF INCUBATION. Resulted Labs and/or images reviewed: Labs reviewed by me, Image(s) reviewed by me Problem List/Assessment/Plan Problem List/Assessment/Plan Ms. Valerio, 84-year-old female with a history of dementia, paroxysmal atrial fibrillation, hypertension, and dyslipidemia, and a pacemaker in place, was brought from a nursing facility in [place] for evaluation of altered mental status with the acute hypoxic respiratory failure, community-acquired pneumonia, type 2 NSTEMI, altered level of consciousness, poor oral intake, and dehydration. History was on unobtainable, further collateral history to be taken, patient is admitted in hospital for in-hospital management. #C. diff positive: physical exam -ve for guarding or toxic megacolon picture. 3x watery stool overall yesterday. as per family first diagnosis. oral vancomycin is not reliable given poor oral intake. iv flagyl continue 2/7 days + serial abdominal examination. look for abx associated diarrhea. will hold Florastor as of now. isolation. [place] precautions. #LVH, likely due to uncontrolled HTN, BNP unremarkable Echo TTE 65% LVEF, still hypovolumic continue iv hydration. #Poor PO intake: starvation ketonuria, dehydration, gentle iv hydration to continue, follow up labs. added ensure and diet started. #hypertensive urgency/emergency: Presented with 180/88, home medications include losartan 50 mg, Lopressor 25 mg, Hydrochlorothiazide 25 mg, patient is NPO, started the patient on hydralazine 10 mg q.6 scheduled IV for now. added amlodipine 10 mg oral daily target bp 140/90. #anxiety, depression: buspirone 15 mg daily #acute encephalopathy toxic versus metabolic: Multifactorial likely due to poor oral intake, ALOC, alert yet orientation 0, not communicating to verbal questioning. Delirium precautions, fall precautions. Continue NPO, aspiration risk, frequent reorientation, avoid Beer's criteria drugs. #urgency incontinence: UTI vs dementia vs age related. hold oxybutynin 10 mg daily. Check bladder scan! continue diaper. #age-appropriate osteoarthritis: denies any acute pain, recurrent fall >6 times in past 1 month. PT evaluation. #Mild to moderate protein energy malnutrition: related to worsening dementia, family discussion on feeding options discussed with next keen. will add high protein supplements when safe. frequent bed position change and air mattress. high risk of pressure ulcer. #Paroxysmal A fib on Pradaxa, chads Vasc 4: continue Pradaxa, metoprolol tartrate 25 mg p.o. b.i.d. target heart rate 80-110 as per RACE II trial #recent UTI noted around 12/27, UA unremarkable in this presentation: Culture positive for E coli with resistant to ampicillin, ciprofloxacin and TMP SMX #acute hypoxic respiratory failure: On 3 L>>1.5 of nasal cannula oxygen, no respiratory distress noted, wean as tolerated to keep SPO2>94%. #community-acquired pneumonia Gram-positive /Gram-negative/Atypical : Continue azithromycin ceftriaxone, covid and influenza -ve MRSA screening pending. continue iv abx ceftriaxone + Zithromax /. avoid aspiration. #sepsis secondary to above: Presenting WBC 16.3, tachycardia, predominant neutrophilia, with lymphopenia, improving -ve lactate. #Type 2 NSTEMI: 67, 73, 76 tropes, could be due to uncontrolled hypertension, Sinus rhythm, Nonspecific repol abnormality. 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 #Vitamin B12 deficiency: 204, B12 and Folate rechecked. was on supplementation. levels stable. #Progressive Dementia: Ruled out hemorrhagic stroke CT negative , on home memantine 10 mg daily, NPO except medications, likely worsening dementia versus delirium: Delirium precaution fall precaution and aspiration precautions to continue. Downgrade to Med/Surgery. [place] tele. Patient on DVT prophylaxis with full coagulation with pradaxa bid. Dietary consult for further evaluation pending (as per ASPEN 2023 update) Discussed with Infection Control team: needs whole length of stay in Isolation. Potential discharge complication with C.Diff to the facility. Encourage OOB and PT. SW input appreciate. Discussed with patient's family/next kin changed to DNR DNI. Goals of care and care plan needed total 29 minutes at bedside. Updated daughter at bedside. Discussed with Dr. Fox. Plan discussed with: Patient My Orders My Orders Orders - STEPHANI JERNIGAN RESIDENT Procedure Category Date Status Time Communication Order ORDERS 01/24/25 Transmitted 16:55 Dietary Evaluation Review Comments: 1) TPN if NPO > 5 days 2) Advance diet as medically feasible 3) Consider Ensure Enlive 240ml TID 4) Monitor wt trend, lab values, skin trend, I/O Expected Outcomes/Goals: To meet >75% estimated needs Fu 2-3 days Date of Service: Jan 25, 2025 Billing Provider: KEVIN FOX MD Common Visit Codes: [id number] INP/OBS CARE(HIGH) STEPHANI JERNIGAN RESIDENT Jan 25, 2025 11:55 KEVIN FOX MD Jan 29, 2025 08:44
[2025-01-26] VITALS (9 sets, daily range): BP systolic 94–174; BP diastolic 52–98; PULSE 74–85; RESP 16–19; TEMP 97.6–98.5; O2SAT 96–99
[2025-01-26] MEDS: ONDANSETRON HCL 4 MG/2 ML VIAL IV PRN (06:54)
--- NOTE | 2025-01-26 11:13 | DVHPNRES ---
Progress Note Date Seen: Jan 26, 2025 Resident Creating Document: STEPHANI JERNIGAN RESIDENT Medical Necessity Reason Pt with a Central, PICC or Fol: No Subjective Patient reports: No new complaints Objective vital signs Vital Sign Date Time Temp Pulse Resp B/P (MAP) Pulse Ox O2 Delivery O2 Flow Rate FiO2 01/26/25 10:42 140/52 01/26/25 10:42 74 01/26/25 08:35 98.3 16 98 98.3 01/25/25 20:14 Nasal Cannula* 2 28 Total Intake and Output 01/25/25 01/25/25 01/26/25 15:00 23:00 07:00 Intake Total 400 ml 750 ml 100 ml Output Total 150 ml 300 ml Balance 400 ml 600 ml -200 ml medications Current Medications Medications Dose Ordered Sig/Yovani Route Start Time Stop Time Status Last Admin Dose Admin Ceftriaxone Sodium 50 ml @ 100 mls/hr DAILY@09 IV 01/22/25 09:00 01/26/25 09:20 100 MLS/HR Azithromycin 250 ml @ 125 mls/hr DAILY IV 01/22/25 10:00 01/26/25 09:21 125 MLS/HR Metoprolol Tartrate 25 mg BID PO 01/22/25 10:00 01/26/25 10:42 25 MG Losartan Potassium 50 mg DAILY PO 01/22/25 10:00 01/26/25 10:41 50 MG Memantine 10 mg DAILY PO 01/22/25 10:00 01/26/25 10:41 10 MG Patient Own Medication 20 mg DAILY PO 01/22/25 10:00 UNV Ondansetron HCl 4 mg Q4HP PRN IV 01/22/25 03:00 01/26/25 06:54 4 MG Acetaminophen 650 mg Q6HP PRN PO 01/22/25 03:00 Nitroglycerin 0.4 mg Q5MINP PRN SL 01/22/25 03:00 Morphine Sulfate 2 mg Q30M PRN IV 01/22/25 03:00 Albuterol 2.5 mg Q6HPRN PRN NEB 01/22/25 03:00 Dabigatran 150 mg BID PO 01/22/25 10:00 01/26/25 10:46 150 MG Atorvastatin Calcium 40 mg HS PO 01/23/25 22:00 Lactated Ringer's 1,000 ml @ 75 mls/hr [id number] IV 01/22/25 08:45 01/26/25 06:05 75 MLS/HR Hydralazine HCl 10 mg Q6HR IV 01/23/25 09:00 01/26/25 05:47 10 MG Metronidazole 100 ml @ 100 mls/hr Q8HR IV 01/23/25 15:15 01/26/25 05:49 100 MLS/HR Enteral Nutritional Formula 240 ml TIDWM PO 01/23/25 18:00 01/26/25 08:24 240 ML Amlodipine Besylate 10 mg DAILY PO 01/24/25 10:00 01/26/25 10:42 10 MG Examination: GENERAL:Normal, HEENT:Normal, NECK:Normal, LUNGS:Abnormal (b/l rales), CVS:Normal, ABDOMEN:Normal, MSK:Normal, SKIN:Normal, NEURO:Abnormal (Confused; oriented to self) laboratory and microbiology Laboratory Tests 01/24/25 11:00 Test 01/24/25 11:00 Range/Units Serum Glucose 115 H 74-106 mg/dL Microbiology Date/Time Source Procedure Growth Status 01/23/25 13:00 Nose MRSA Screen - Final Complete 01/22/25 17:38 Stool Clostridium difficile Toxin Assay - Final Complete 01/21/25 23:04 Blood Blood Culture - Preliminary NO GROWTH AFTER 72 HOURS OF INCUBATION. Resulted Labs and/or images reviewed: Labs reviewed by me, Image(s) reviewed by me Problem List/Assessment/Plan Problem List/Assessment/Plan Ms. Valerio, 84-year-old female with a history of dementia, paroxysmal atrial fibrillation, hypertension, and dyslipidemia, and a pacemaker in place, was brought from a nursing facility in [place] for evaluation of altered mental status with the acute hypoxic respiratory failure, community-acquired pneumonia, type 2 NSTEMI, altered level of consciousness, poor oral intake, and dehydration. History was on unobtainable, further collateral history to be taken, patient is admitted in hospital for in-hospital management. #C. diff positive: physical exam -ve for guarding or toxic megacolon picture. 3x watery stool overall yesterday. as per family first diagnosis. oral vancomycin is not reliable given poor oral intake. iv flagyl continue 3/7 days + serial abdominal examination. look for abx associated diarrhea. will hold Florastor as of now. isolation. [place] precautions. BM x 1 formed in last 24 hours #LVH, likely due to uncontrolled HTN, BNP unremarkable Echo TTE 65% LVEF, still hypovolumic continue iv hydration. #Poor PO intake: starvation ketonuria, dehydration, gentle iv hydration to continue, follow up labs. Dietary consult for further evaluation pending (as per ASPEN 2023 update) Diet consult appreciated, added ensure and diet started. Change consistency as per advice. #hypertensive urgency/emergency: Presented with 180/88, home medications include losartan 50 mg, Lopressor 25 mg, Hydrochlorothiazide 25 mg, patient is NPO, started the patient on hydralazine 10 mg q.6 scheduled IV for now. added amlodipine 10 mg oral daily target bp 140/90. #anxiety, depression: buspirone 15 mg daily #acute encephalopathy toxic versus metabolic: Multifactorial likely due to poor oral intake, ALOC, alert yet orientation 0, not communicating to verbal questioning. Delirium precautions, fall precautions. Continue NPO, aspiration risk, frequent reorientation, avoid Beer's criteria drugs. #urgency incontinence: UTI vs dementia vs age related. hold oxybutynin 10 mg daily. Check bladder scan! continue diaper. #age-appropriate osteoarthritis: denies any acute pain, recurrent fall >6 times in past 1 month. PT evaluation. #Mild to moderate protein energy malnutrition: related to worsening dementia, family discussion on feeding options discussed with next keen. will add high protein supplements when safe. frequent bed position change and air mattress. high risk of pressure ulcer. #Paroxysmal A fib on Pradaxa, chads Vasc 4: continue Pradaxa, metoprolol tartrate 25 mg p.o. b.i.d. target heart rate 80-110 as per RACE II trial #recent UTI noted around 12/27, UA unremarkable in this presentation: Culture positive for E coli with resistant to ampicillin, ciprofloxacin and TMP SMX #acute hypoxic respiratory failure: On 3 L>>1.5 of nasal cannula oxygen, no respiratory distress noted, wean as tolerated to keep SPO2>94%. back to room air. #community-acquired pneumonia Gram-positive /Gram-negative/Atypical : Continue azithromycin ceftriaxone, covid and influenza -ve MRSA screening pending. continue iv abx ceftriaxone + Zithromax 08/30. avoid aspiration. #sepsis secondary to above: Presenting WBC 16.3, tachycardia, predominant neutrophilia, with lymphopenia, improving -ve lactate. #Type 2 NSTEMI: 67, 73, 76 tropes, could be due to uncontrolled hypertension, Sinus rhythm, Nonspecific repol abnormality. 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 #Vitamin B12 deficiency: 204, B12 and Folate rechecked. was on supplementation. levels stable. #Progressive Dementia: Ruled out hemorrhagic stroke CT negative , on home memantine 10 mg daily, NPO except medications, likely worsening dementia versus delirium: Delirium precaution fall precaution and aspiration precautions to continue. #Patient on DVT prophylaxis with full coagulation with pradaxa bid. Discussed with Infection Control team: needs whole length of stay in Isolation. Potential discharge complication with C.Diff to the facility. Encourage OOB and PT. SW input appreciate. Goals of care discussed with the patient's daughter for 20 minutes; DNR/DNI. Contact plus precautions Discussed with Dr. Yousif. Plan discussed with: Daughter, Other (Nurse) Dietary Evaluation Review Comments: 1) TPN if NPO > 5 days 2) Advance diet as medically feasible 3) Consider Ensure Enlive 240ml TID 4) Monitor wt trend, lab values, skin trend, I/O Expected Outcomes/Goals: To meet >75% estimated needs Fu 2-3 days Addendum Addendum Addendum I was physically present for the vu portions of the service provided to patient by THE RESIDENT. I have reviewed the documentation, discussed the case with resident and agree with the resident's documentation except as noted. Also the patient's clinical case was discussed with the patient's nurse. This medical document was created using an electronic medical record system with computerized dictation system. Although this document has been carefully reviewed, there might still be some phonetic and typographical errors. These areas are purely typographical due to imperfections of the software programs, and do not reflect any compromise in the patient's medical care. Late signature. Date of Service: Jan 26, 2025 Billing Provider: MAGNOLIA YOUSIF MD Common Visit Codes: [id number] INP/OBS CARE(HIGH) Secondary Visit Codes: [id number] CARE PLAN 30 MINUTES (20 minutes) STEPHANI JERNIGAN RESIDENT Jan 26, 2025 11:12 MAGNOLIA YOUSIF MD Jan 28, 2025 06:21
[2025-01-27] VITALS (7 sets, daily range): BP systolic 111–149; BP diastolic 73–97; PULSE 64–85; RESP 16–17; TEMP 98.1–98.7; O2SAT 95–98
--- NOTE | 2025-01-27 17:24 | DVHPNRES ---
Progress Note Date Seen: Jan 27, 2025 Resident Creating Document: DENISE DODD RESIDENT Medical Necessity Reason Pt with a Central, PICC or Fol: No Subjective Review of Systems Liz Valerio is an 84-year-old female with a history of dementia, paroxysmal atrial fibrillation, hypertension, and dyslipidemia, and a pacemaker in place, was brought from a nursing facility in [place] for evaluation of altered mental status with the acute hypoxic respiratory failure, community- acquired pneumonia, type 2 NSTEMI, altered level of consciousness, poor oral intake, and dehydration. History was on unobtainable, further collateral history to be taken, patient is admitted in hospital for in-hospital management. She was examined at bedside today. Altered mentation, no new complaints reported. Last bowel movement yesterday. Objective vital signs Vital Sign Date Time Temp Pulse Resp B/P (MAP) Pulse Ox O2 Delivery O2 Flow Rate FiO2 01/27/25 13:00 98.1 64 16 111/73 (86) 95 98.1 01/27/25 08:25 Room Air* 0 21 Total Intake and Output 01/26/25 01/26/25 01/27/25 15:00 23:00 07:00 Intake Total 1460 ml 60 ml 100 ml Output Total 275 ml 175 ml Balance 1460 ml -215 ml -75 ml medications Current Medications Medications Dose Ordered Sig/Yovani Route Start Time Stop Time Status Last Admin Dose Admin Ceftriaxone Sodium 50 ml @ 100 mls/hr DAILY@09 IV 01/22/25 09:00 01/27/25 09:22 100 MLS/HR Azithromycin 250 ml @ 125 mls/hr DAILY IV 01/22/25 10:00 01/27/25 09:22 125 MLS/HR Metoprolol Tartrate 25 mg BID PO 01/22/25 10:00 01/27/25 09:23 25 MG Losartan Potassium 50 mg DAILY PO 01/22/25 10:00 01/27/25 09:24 50 MG Memantine 10 mg DAILY PO 01/22/25 10:00 01/27/25 09:24 10 MG Patient Own Medication 20 mg DAILY PO 01/22/25 10:00 UNV Ondansetron HCl 4 mg Q4HP PRN IV 01/22/25 03:00 01/26/25 06:54 4 MG Acetaminophen 650 mg Q6HP PRN PO 01/22/25 03:00 Nitroglycerin 0.4 mg Q5MINP PRN SL 01/22/25 03:00 Morphine Sulfate 2 mg Q30M PRN IV 01/22/25 03:00 Albuterol 2.5 mg Q6HPRN PRN NEB 01/22/25 03:00 Dabigatran 150 mg BID PO 01/22/25 10:00 01/27/25 09:24 150 MG Atorvastatin Calcium 40 mg HS PO 01/23/25 22:00 Lactated Ringer's 1,000 ml @ 75 mls/hr [id number] IV 01/22/25 08:45 01/27/25 09:22 75 MLS/HR Hydralazine HCl 10 mg Q6HR IV 01/23/25 09:00 01/27/25 05:46 10 MG Metronidazole 100 ml @ 100 mls/hr Q8HR IV 01/23/25 15:15 01/27/25 13:49 100 MLS/HR Enteral Nutritional Formula 240 ml TIDWM PO 01/23/25 18:00 01/27/25 12:44 240 ML Amlodipine Besylate 10 mg DAILY PO 01/24/25 10:00 01/27/25 09:23 10 MG Examination General: Not oriented to place and person. HEENT: Normocephalic, atraumatic Abdomen: Mild tenderness to palpation of abdomen. laboratory and microbiology Laboratory Tests 01/24/25 11:00 Test 01/24/25 11:00 Range/Units Serum Glucose 115 H 74-106 mg/dL Microbiology Date/Time Source Procedure Growth Status 01/23/25 13:00 Nose MRSA Screen - Final Complete 01/22/25 17:38 Stool Clostridium difficile Toxin Assay - Final Complete 01/21/25 23:04 Blood Blood Culture - Final NO GROWTH AFTER 5 DAYS OF INCUBATION. Complete Labs and/or images reviewed: Labs reviewed by me, Image(s) reviewed by me Problem List/Assessment/Plan Problem List/Assessment/Plan Paroxysmal A fib on Pradaxa Chads Vasc 4 Continue Pradaxa, metoprolol tartrate 25 mg p.o. b.i.d. target heart rate 80-110 as per RACE II trial Recent UTI noted around 12/27, UA unremarkable in this presentation Culture positive for E coli with resistant to ampicillin, ciprofloxacin and TMP SMX Acute hypoxic respiratory failure On 3 L of nasal cannula oxygen, no respiratory distress noted. Community-acquired pneumonia Gram-positive /Gram-negative/Atypical Continue azithromycin ceftriaxone Sepsis secondary to above Presenting WBC 16.3, tachycardia, predominant neutrophilia, with lymphopenia, Type 2 NSTEMI 67, 73, 76 tropes, could be due to uncontrolled hypertension, Sinus rhythm, Nonspecific repolarization abnormality, diffuse leads BNP WNL Echo revealed lvef 65%, moderate LVH, left atrium enlarged mild, pacing lead in RV, moderate tricuspid regurg, moderate to severe pulm htn, mild to moderate aortic regurg Acute encephalopathy toxic versus metabolic: Multifactorial likely due to poor oral intake, ALOC, alert yet orientation 0, not communicating to verbal questioning. Delirium precautions, fall precautions. 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 Vitamin B12 deficiency B12 and Folate rechecked. was on supplementation. Starvation ketonuria, dehydration Gentle hydration to continue Progressive Dementia Ruled out hemorrhagic stroke CT negative , on home memantine 10 mg daily, NPO except medications, likely worsening dementia versus delirium: Delirium precaution fall precaution and aspiration precautions to continue. Hypertensive urgency/emergency Presented with 180/88, home medications include losartan 50 mg, Lopressor 25 mg, Hydrochlorothiazide 25 mg, patient is NPO, started the patient on hydralazine 10 mg q.6 scheduled IV for now. History of Anxiety History of Depression Buspirone 15 mg daily Urgency incontinence UTI vs dementia vs age related. oxybutynin 10 mg daily. Check bladder scan! Age-appropriate osteoarthritis, denies any acute pain, recurrent fall >6 times in past 1 month. PT consulted for discharge Case discussed with Dr. Yousif. Plan discussed with: Other (nursing staff) Dietary Evaluation Review Comments: 1) TPN if NPO > 5 days 2) Advance diet as medically feasible 3) Consider Ensure Enlive 240ml TID 4) Monitor wt trend, lab values, skin trend, I/O Expected Outcomes/Goals: To meet >75% estimated needs Fu 2-3 days Addendum Addendum Addendum I was physically present for the vu portions of the service provided to patient by THE RESIDENT. I have reviewed the documentation, discussed the case with resident and agree with the resident's documentation except as noted. Also the patient's clinical case was discussed with the patient's nurse. This medical document was created using an electronic medical record system with computerized dictation system. Although this document has been carefully reviewed, there might still be some phonetic and typographical errors. These areas are purely typographical due to imperfections of the software programs, and do not reflect any compromise in the patient's medical care. Late signature. Date of Service: Jan 27, 2025 Billing Provider: MAGNOLIA YOUSIF MD Common Visit Codes: [id number] INP/OBS CARE(HIGH) DENISE DODD RESIDENT Jan 27, 2025 17:24 MAGNOLIA YOUSIF MD Jan 29, 2025 12:47
[2025-01-28] VITALS (8 sets, daily range): BP systolic 127–175; BP diastolic 39–97; PULSE 60–78; RESP 18–19; TEMP 97.8–98.2; O2SAT 93–99
[2025-01-28] MEDS: ACETAMINOPHEN 325 MG TAB PO PRN (12:11)
[2025-01-28 14:18] LABS: Hematocrit 38.7 % (36.0-46.0); Hemoglobin 13.0 g/dL (12.2-16.2); Mean Corpuscular Hemoglobin 28.4 pg (28.0-32.0); Mean Corpuscular Volume 84.7 fL (80.0-100.0); Nucleated Red Blood Cells % 0.1 %
[2025-01-28 14:29] LABS: Alanine Aminotransferase 19 U/L (7-40); Albumin 3.4 g/dL (3.2-4.8); Alkaline Phosphatase 56 U/L (46-116); Anion Gap 7 (5-15); BUN/Creatinine Ratio 20.7 (10.0-20.0); Blood Urea Nitrogen 12 mg/dL (9-23); Calcium 9.5 mg/dL (8.7-10.4); Carbon Dioxide 28 mmol/L (20-31); Chloride 106 mmol/L (98-107); Sodium 141 mmol/L (136-145)
[2025-01-28 14:30] LABS: Bilirubin, Total 0.4 mg/dL (0.2-1.0)
[2025-01-28 14:32] LABS: Glucose 120 mg/dL (74-106); Potassium 3.3 mmol/L (3.5-5.1); Total Protein 5.7 g/dL (5.7-8.2)
--- NOTE | 2025-01-28 16:05 | DVHPNRES ---
Progress Note Date Seen: Jan 28, 2025 Resident Creating Document: JEFF STALEY RESDIENT Medical Necessity Reason Pt with a Central, PICC or Fol: No Subjective Review of Systems Patient seen and examined at bedside. Patient is feeling worsened today in compare to yesterday and has decreased oral intake. Objective vital signs Vital Sign Date Time Temp Pulse Resp B/P (MAP) Pulse Ox O2 Delivery O2 Flow Rate FiO2 01/28/25 13:00 97.8 62 18 149/53 (85) 99 97.8 01/28/25 09:28 1.0 21 01/28/25 09:10 Nasal Cannula Total Intake and Output 01/27/25 01/27/25 01/28/25 15:00 23:00 07:00 Intake Total 400 ml 125 ml 50 ml Output Total 275 ml 450 ml Balance 400 ml -150 ml -400 ml medications Current Medications Medications Dose Ordered Sig/Yovani Route Start Time Stop Time Status Last Admin Dose Admin Ceftriaxone Sodium 50 ml @ 100 mls/hr DAILY@09 IV 01/22/25 09:00 01/28/25 08:59 100 MLS/HR Azithromycin 250 ml @ 125 mls/hr DAILY IV 01/22/25 10:00 01/28/25 08:59 125 MLS/HR Metoprolol Tartrate 25 mg BID PO 01/22/25 10:00 01/28/25 00:09 25 MG Losartan Potassium 50 mg DAILY PO 01/22/25 10:00 01/27/25 09:24 50 MG Memantine 10 mg DAILY PO 01/22/25 10:00 01/27/25 09:24 10 MG Patient Own Medication 20 mg DAILY PO 01/22/25 10:00 UNV Ondansetron HCl 4 mg Q4HP PRN IV 01/22/25 03:00 01/26/25 06:54 4 MG Acetaminophen 650 mg Q6HP PRN PO 01/22/25 03:00 01/28/25 12:11 650 MG Nitroglycerin 0.4 mg Q5MINP PRN SL 01/22/25 03:00 Morphine Sulfate 2 mg Q30M PRN IV 01/22/25 03:00 Albuterol 2.5 mg Q6HPRN PRN NEB 01/22/25 03:00 Dabigatran 150 mg BID PO 01/22/25 10:00 01/28/25 00:10 150 MG Atorvastatin Calcium 40 mg HS PO 01/23/25 22:00 01/28/25 00:07 40 MG Lactated Ringer's 1,000 ml @ 75 mls/hr [id number] IV 01/22/25 08:45 01/27/25 22:05 75 MLS/HR Hydralazine HCl 10 mg Q6HR IV 01/23/25 09:00 01/28/25 08:06 10 MG Metronidazole 100 ml @ 100 mls/hr Q8HR IV 01/23/25 15:15 01/28/25 16:00 100 MLS/HR Enteral Nutritional Formula 240 ml TIDWM PO 01/23/25 18:00 01/28/25 12:10 240 ML Amlodipine Besylate 10 mg DAILY PO 01/24/25 10:00 01/27/25 09:23 10 MG Examination General Appearance: Alert, confused, Cooperative, No acute distress HEENT: Atraumatic, PERRLA, EOMI, Mucous membrane moist/pink Respiratory: Clear to auscultation, Normal air movement Cardiovascular: Regular rate, Normal S1, Normal S2, No murmurs, no chest wall tenderness Abdominal: Normal bowel sounds, Soft, No tenderness, No hepatosplenomegaly, No masses Extremities: No clubbing, No cyanosis, No edema, Normal pulses, No tenderness/swelling Skin: No rashes, No breakdown, No significant lesion Neuro: Normal gait, Normal speech, Strength at 5/5 X4 ext, Normal tone, Sensation intact, Cranial nerves 3-12 NL, Reflexes 2+ Psych/Mental Status: Mental status NL, Mood NL laboratory and microbiology Laboratory Tests 01/28/25 13:45 Test 01/28/25 13:45 Range/Units Serum Glucose 120 H 74-106 mg/dL Microbiology Date/Time Source Procedure Growth Status 01/23/25 13:00 Nose MRSA Screen - Final Complete 01/22/25 17:38 Stool Clostridium difficile Toxin Assay - Final Complete 01/21/25 23:04 Blood Blood Culture - Final NO GROWTH AFTER 5 DAYS OF INCUBATION. Complete Labs and/or images reviewed: Labs reviewed by me, Image(s) reviewed by me Problem List/Assessment/Plan Problem List/Assessment/Plan Ms. Valerio, aN 84-year-old female with a history of dementia, paroxysmal atrial fibrillation, hypertension, and dyslipidemia, and a pacemaker in place, was brought from a nursing facility in [place] for evaluation of altered mental status with the acute hypoxic respiratory failure, community- acquired pneumonia, type 2 NSTEMI, altered level of consciousness, poor oral intake, and dehydration. History was on unobtainable, further collateral history to be taken, patient is admitted in hospital for in-hospital management. #C. diff positive: physical exam -ve for guarding or toxic megacolon picture. 3x watery stool overall yesterday. as per family first diagnosis. oral vancomycin is not reliable given poor oral intake. iv flagyl continue 3/7 days + serial abdominal examination. look for abx associated diarrhea. will hold Florastor as of now. isolation. [place] precautions. BM x 1 formed in last 24 hours #LVH, likely due to uncontrolled HTN, BNP unremarkable Echo TTE 65% LVEF, still hypovolumic continue iv hydration. #Poor PO intake: starvation ketonuria, dehydration, gentle iv hydration to continue, follow up labs. Dietary consult for further evaluation pending (as per ASPEN 2023 update) Diet consult appreciated, added ensure and diet started. Change consistency as per advice. #hypertensive urgency/emergency: Presented with 180/88, home medications include losartan 50 mg, Lopressor 25 mg, Hydrochlorothiazide 25 mg, patient is NPO, started the patient on hydralazine 10 mg q.6 scheduled IV for now. added amlodipine 10 mg oral daily target bp 140/90. #anxiety, depression: buspirone 15 mg daily #acute encephalopathy toxic versus metabolic: Multifactorial likely due to poor oral intake, ALOC, alert yet orientation 0, not communicating to verbal questioning. Delirium precautions, fall precautions. Continue NPO, aspiration risk, frequent reorientation, avoid Beer's criteria drugs. #urgency incontinence: UTI vs dementia vs age related. hold oxybutynin 10 mg daily. Check bladder scan! continue diaper. #age-appropriate osteoarthritis: denies any acute pain, recurrent fall >6 times in past 1 month. PT evaluation. #Mild to moderate protein energy malnutrition: related to worsening dementia, family discussion on feeding options discussed with next keen. will add high protein supplements when safe. frequent bed position change and air mattress. high risk of pressure ulcer. #Paroxysmal A fib on Pradaxa, chads Vasc 4: continue Pradaxa, metoprolol tartrate 25 mg p.o. b.i.d. target heart rate 80-110 as per RACE II trial #recent UTI noted around 12/27, UA unremarkable in this presentation: Culture positive for E coli with resistant to ampicillin, ciprofloxacin and TMP SMX #acute hypoxic respiratory failure: On 3 L>>1.5 of nasal cannula oxygen, no respiratory distress noted, wean as tolerated to keep SPO2>94%. back to room air. #community-acquired pneumonia Gram-positive /Gram-negative/Atypical : Continue azithromycin ceftriaxone, covid and influenza -ve MRSA screening pending. continue iv abx ceftriaxone + Zithromax 08/30. avoid aspiration. #sepsis secondary to above: Presenting WBC 16.3, tachycardia, predominant neutrophilia, with lymphopenia, improving -ve lactate. #Type 2 NSTEMI: 67, 73, 76 tropes, could be due to uncontrolled hypertension, Sinus rhythm, Nonspecific repol abnormality. 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 #Vitamin B12 deficiency: 204, B12 and Folate rechecked. was on supplementation. levels stable. #Progressive Dementia: Ruled out hemorrhagic stroke CT negative , on home memantine 10 mg daily, NPO except medications, likely worsening dementia versus delirium: Delirium precaution fall precaution and aspiration precautions to continue. #Patient on DVT prophylaxis with full coagulation with pradaxa bid. Discussed with Infection Control team: needs whole length of stay in Isolation. Potential discharge complication with C.Diff to the facility. Encourage OOB and PT. SW input appreciate. Goals of care discussed with the patient's daughter for 20 minutes; DNR/DNI. Contact plus precautions Discussed with Dr. Yousif. Plan discussed with: Daughter, Other (RN) Dietary Evaluation Review Comments: 1) TPN if NPO > 5 days 2) Advance diet as medically feasible 3) Consider Ensure Enlive 240ml TID 4) Monitor wt trend, lab values, skin trend, I/O Expected Outcomes/Goals: To meet >75% estimated needs Fu 2-3 days Addendum Addendum Addendum I was physically present for the vu portions of the service provided to patient by THE RESIDENT. I have reviewed the documentation, discussed the case with resident and agree with the resident's documentation except as noted. Also the patient's clinical case was discussed with the patient's nurse. This medical document was created using an electronic medical record system with computerized dictation system. Although this document has been carefully reviewed, there might still be some phonetic and typographical errors. These areas are purely typographical due to imperfections of the software programs, and do not reflect any compromise in the patient's medical care. Late signature. Date of Service: Jan 28, 2025 Billing Provider: MAGNOLIA YOUSIF MD Common Visit Codes: [id number] INP/OBS CARE(HIGH) Secondary Visit Codes: [id number] CARE PLAN 30 MINUTES (20 MINUTES) JEFF STALEY Jan 28, 2025 16:05 MAGNOLIA YOUSIF MD Jan 29, 2025 12:53
[2025-01-28] MEDS ORDERED: POTASSIUM CHLORIDE 40 MEQ, LIDOCAINE 1% (LOCAL ANESTH.) 4 ML in SODIUM CHL 0.9% 250 ML IV ONE (16:30)
[2025-01-28] MEDS: POTASSIUM CHL 20 Meq TABLET PO ONE (17:57)
[2025-01-29 05:00] VITALS: BP 153/80; PULSE 83; RESP 18; TEMP 97.8; O2SAT 97
[2025-01-29 07:42] VITALS: O2SAT 95
[2025-01-29 09:00] VITALS: BP 174/80; PULSE 80; RESP 18; TEMP 98.7; O2SAT 98
--- NOTE | 2025-01-29 09:06 | DVHDSRES ---
Discharge Summary Date of Admission Resident Creating Document: JEFF STALEY RESDIENT Jan 22, 2025 at 02:57 Date of Discharge: Jan 29, 2025 Admitting Diagnosis ALOC Labs/Diagnostic Data: Laboratory Results Test 01/28/25 13:45 01/24/25 11:00 01/22/25 16:11 01/22/25 13:42 White Blood Count 6.6 10^3/uL (4.4-10.8) Red Blood Count 4.57 10^6/uL (4.0-5.20) Hemoglobin 13.0 g/dL (12.2-16.2) Hematocrit 38.7 % (36.0-46.0) Mean Corpuscular Volume 84.7 fL (80.0-100.0) Mean Corpuscular Hemoglobin 28.4 pg (28.0-32.0) Mean Corpuscular Hemoglobin Concent 33.6 g/dL (32.0-36.0) Red Cell Distribution Width 14.6 % (11.8-14.3) Platelet Count 336 10^3/uL (140-450) Mean Platelet Volume 7.8 fL (6.9-10.8) Neutrophils (%) (Auto) 71.9 % (37.0-80.0) Lymphocytes (%) (Auto) 14.9 % (10.0-50.0) Monocytes (%) (Auto) 9.7 % (0.0-12.0) Eosinophils (%) (Auto) 2.4 % (0.0-7.0) Basophils (%) (Auto) 1.1 % (0.0-2.0) Neutrophils # (Auto) 4.7 10 ^3/uL (1.6-8.6) Lymphocytes # (Auto) 1.0 10 ^3/uL (0.4-5.4) Monocytes # (Auto) 0.6 10 ^3/uL (0-1.3) Eosinophils # (Auto) 0.2 10 ^3/uL (0-0.8) Basophils # (Auto) 0.1 10 ^3/uL (0-0.2) Nucleated Red Blood Cells 0.1 % Sodium Level 141 mmol/L (136-145) Potassium Level 3.3 mmol/L (3.5-5.1) Chloride Level 106 mmol/L (98-107) Carbon Dioxide Level 28 mmol/L (20-31) Anion Gap 7 (5-15) Blood Urea Nitrogen 12 mg/dL (9-23) Creatinine 0.58 mg/dL (0.550-1.02) Glomerular Filtration Rate Calc 90 mL/min (>90) BUN/Creatinine Ratio 20.7 (10.0-20.0) Serum Glucose 120 mg/dL (74-106) Calcium Level 9.5 mg/dL (8.7-10.4) Total Bilirubin 0.4 mg/dL (0.2-1.0) Aspartate Amino Transferase (AST) 36 U/L (13-40) Alanine Aminotransferase (ALT) 19 U/L (7-40) Alkaline Phosphatase 56 U/L (46-116) Total Protein 5.7 g/dL (5.7-8.2) Albumin 3.4 g/dL (3.2-4.8) Lactic Acid Level 1.2 mmol/L (0.4-2.0) B-Type Natriuretic Peptide 74.81 pg/mL (0-100) Vitamin B12 Level 511 pg/mL (211-911) Folic Acid 8.01 ng/mL (>5.38) Test 01/22/25 08:29 01/22/25 02:36 01/22/25 02:11 01/22/25 00:00 Influenza Type A Antigen Negative (Negative) Influenza Type B Antigen Negative (Negative) Urine Color Light-yellow (Yellow) Urine Clarity Clear (Clear) Urine pH 6.5 (5.0-9.0) Urine Specific [place] 1.018 (1.001-1.035) Urine Protein Negative (Negative) Urine Ketones 1+ (Negative) Urine Blood Negative /uL (Negative) Urine Nitrite Negative (Negative) Urine Bilirubin Negative (Negative) Urine Urobilinogen Normal mg/dL (Negative) Urine Leukocyte Esterase Negative /uL (Negative) Urine RBC 2 /hpf (0 - 4) Urine Microscopic WBC 2 /HPF (0-5) Urine Squamous Epithelial Cells Few /hpf (<5) Urine Bacteria Few /hpf (None Seen) Urine Glucose Trace mg/dL (Normal) Magnesium Level 2.2 mg/dL (1.6-2.6) Direct Bilirubin 0.3 mg/dL (<0.3) Lactate Dehydrogenase 276 U/L (120-246) Troponin I High Sensitivity 76 ng/L (</=34) Thyroid Stimulating Hormone (TSH) 4.60 uIU/mL (0.55-4.78) SARS-CoV-2 Antigen (Rapid) Negative (NEGATIVE) Other Laboratory Tests 01/28/25 13:45 Brief Hx & Hospital Course: Brief hospital description: Ms. Cash, 84-year-old female with a history of dementia, paroxysmal atrial fibrillation, hypertension, and dyslipidemia, and a pacemaker in place, was brought from a nursing facility in [place] for evaluation of altered mental status with the acute hypoxic respiratory failure, community-acquired pneumonia, type 2 NSTEMI, altered level of consciousness, poor oral intake, and dehydration treated with IV abx and noted to have C DIff positive s/p iv abx patient is hemodynamically stable and back to room air. Discharging to facility with a detailed discussion with Daughter, next of kin. Medical condition treated in hospital: #C. diff positive sp iv flagyl continue #LVH, likely due to uncontrolled HTN #Hypovolumia due to poor Poor PO intake, diet as per nutrition consult per advice. #starvation ketonuria, dehydration, gentle iv #hypertensive urgency/emergency, #anxiety, depression: buspirone to continue #acute encephalopathy toxic versus metabolic, improved #urgency incontinence: UTI vs dementia vs age related: continue diaper. #age-appropriate osteoarthritis #Mild to moderate protein energy malnutrition, encourage nutrition #Paroxysmal A fib on Pradaxa, chads Vasc 4: continue Pradaxa, metoprolol tartrate 25 mg p.o. b.i.d. 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 #Patient on DVT prophylaxis with full coagulation with pradaxa bid. #Goals of care discussed with the patient's daughter for 20 minutes; DNR/DNI. Physical examination on the day of discharge: General Appearance: Alert, Oriented X2, Cooperative, No acute distress HEENT: Atraumatic, PERRLA, EOMI, Mucous membrane moist/pink Respiratory: Clear to auscultation, Normal air movement Cardiovascular: Regular rate, Normal S1, Normal S2, No murmurs, no chest wall tenderness Abdominal: Normal bowel sounds, Soft, No tenderness, No hepatospenomegaly, No masses Extremities: No clubbing, No cyanosis, No edema, Normal pulses, No tenderness/swelling Skin: No rashes, No breakdown, No significant lesion Neuro: Normal gait, Normal speech, Strength at 5/5 X4 ext, Normal tone, Sensation intact, Cranial nerves 3-12 NL, Reflexes 2+ Psych/Mental Status: Mental status NL, Mood NL Discussed with Dr. Roberts. Discharge planning and facilitating transfer needed detailed discussion over 37 minutes. Patient and family agreeable. If the patient continues to have declining dementia, recurrent infection consider outpatient hospice follow-up. SW input appreciated. Plan discussed with: Daughter, Other (Nurse) Consults/Reason for consult Dietary, speech therapy Operations or Procedures [place] [address] Ph: [phone] DIAGNOSTIC IMAGING Diagnostic Imaging Report : [id number] Signed PATIENT: ISAI CASH ACCT: [id number] UNIT: [id number] : 1940 LOC: ER ROOM / BED: / AGE / SEX: 84 / F ADM STATUS: REG ER SERVICE ORDERING PHYSICIAN: ALYSHA PERRY MD PROCEDURE(s): HWOCT - HEAD WITHOUT CONTRAST REASON: ALOC ORDER NUMBER(s): [id number], ACCESSION NUMBER(s): [id number] EXAM: CT HEAD WITHOUT CONTRAST INDICATION: ALOC TECHNIQUE: CT of the head without intravenous contrast. Radiation Dose : 1. Head: CT Dose: CTDI volume is 51 mGy. Dose-length product is 902 mGy*cm The dose indicators for CT are the volume Computed Tomography (CT) Dose Index (CTDIvol) and the Dose Length Product (DLP), and are measured in units of mGy and mGy-cm, respectively. These indicators are not patient dose, but values generated from the CT scanner acquisition factors. The report includes radiation exposure data for exposures received during this examination. COMPARISON: CT STROKE CTH on DOS: 12/25/24 FINDINGS: There is no evidence of acute intracranial hemorrhage, extra-axial collection, mass effect, midline shift, herniation or hydrocephalus. The ventricles, sulci and cisterns are age appropriate. The blancas-white differentiation is intact. Patchy periventricular and subcortical white matter hypoattenuation is nonspecific but may be related to small vessel ischemic disease. The visualized paranasal sinuses and mastoid air cells are clear. The surrounding soft tissues and osseous structures are unremarkable. IMPRESSION: 1. No acute intracranial abnormality. 2. Chronic microvascular ischemic changes. Radiation optimization: All CT scans at this facility use at least one of these dose optimization techniques: automated exposure control mA and/or kV adjustment per patient size (includes targeted exams where dose is matched to clinical indication) or iterative reconstruction. ATED BY: FRANNIE GAMBLE MD DICTATED DATE/TIME: 01/21/252337 SIGNED BY: FRANNIE GAMBLE MD SIGNED DATE/TIME: 01/21/252337 CC: [place] [id number] Ph: [phone] DIAGNOSTIC IMAGING Diagnostic Imaging Report : [id number] Signed PATIENT: ISAI CASH ACCT: [id number] UNIT: [id number] : 1940 LOC: ER ROOM / BED: / AGE / SEX: 84 / F ADM STATUS: REG ER SERVICE 39 ORDERING PHYSICIAN: ALYSHA PERRY MD PROCEDURE(s): CXRP - CHEST PORTABLE REASON: SOB ORDER NUMBER(s): [id number], ACCESSION NUMBER(s): [id number] CHEST RADIOGRAPH Indication: SOB Technique: Single frontal view of the chest was obtained COMPARISON: XY CHEST PORTABLE on DOS: 12/26/24 FINDINGS: Lines and Tubes: None. Left anterior chest wall cardiac pacing device. Lungs: Mild left basilar infiltrate and/or atelectasis. The remaining lung zones are clear. No evidence of focal consolidation. Pleura: No effusion. No pneumothorax. Cardiomediastinal contours: Unremarkable. Atherosclerotic vascular calcifications. Bones: Unremarkable IMPRESSION: 1. Mild left basilar infiltrate and/or atelectasis. ATED BY: VALENTIN ROSENBERG MD DICTATED DATE/TIME: 01/21/252317 SIGNED BY: VALENTIN ROSENBERG MD SIGNED DATE/TIME: 01/21/252317 CC: Condition at Discharge: Guarded Final Diagnosis/Problems List #C. diff positive sp iv flagyl continue #LVH, likely due to uncontrolled HTN #Hypovolumia due to poor Poor PO intake, diet as per nutrition consult per advice. #starvation ketonuria, dehydration, gentle iv #hypertensive urgency/emergency, #anxiety, depression: buspirone to continue #acute encephalopathy toxic versus metabolic, improved #urgency incontinence: UTI vs dementia vs age related: continue diaper. #age-appropriate osteoarthritis #Mild to moderate protein energy malnutrition, encourage nutrition #Paroxysmal A fib on Pradaxa, chads Vasc 4: continue Pradaxa, metoprolol tartrate 25 mg p.o. b.i.d. 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 #Patient on DVT prophylaxis with full coagulation with pradaxa bid. #Goals of care discussed with the patient's daughter for 20 minutes; DNR/DNI. Discharge Disposition: Intermediate Facility SNF Discharge Physician in charge at time of: Dr. Roberts Discharge Instruct/Medications Diet: Regular Activity: No Restrictions, As Tolerated Follow Up/Referral: Please follow up with PCP Please follow up with Hospice if the patient concintues to decline (Daughter and family is discussion) Medications: as per EHR Scheduled Buspirone Hcl (Buspirone Hcl), 1 TAB PO BID, (Reported) Dabigatran Etexilate Mesylate (Pradaxa), 150 MG PO BID, (Reported) Memantine Hydrochloride (Memantine HCl), 10 MG PO DAILY, (Reported) Nebivolol HCl (Nebivolol), 10 MG PO DAILY, (Reported) Telmisartan (Micardis), 20 MG PO DAILY, (Reported) Discharge Statement: "Patient was advised to return to the ER or call 911 if any headaches, dizziness, shortness of breath, chest pain, abdominal pain, bleeding, fevers, or worsening of medical condition. Patient was counseled about treatment plan, medications, possible side effects, patientverbalized understanding. All questions were answered to the best of my ability. This discharge took greater then 30 minutes in planning, reviewing documentation, counseling the patient, and discussing with other team members." ASSESSMENT ASSESSMENT Assessment STEPHANI JERNIGAN RESIDENT Jan 29, 2025 09:06
[2025-01-29 13:00] VITALS: BP 153/90; PULSE 59; RESP 17; TEMP 97.8; O2SAT 94
[2025-01-29 13:35] LABS: Hematocrit 40.7 % (36.0-46.0); Hemoglobin 13.6 g/dL (12.2-16.2); Mean Corpuscular Hemoglobin 28.7 pg (28.0-32.0); Mean Corpuscular Volume 85.9 fL (80.0-100.0); Nucleated Red Blood Cells % 0.0 %
[2025-01-29 13:39] LABS: Alanine Aminotransferase 22 U/L (7-40); Albumin 3.3 g/dL (3.2-4.8); Alkaline Phosphatase 57 U/L (46-116); Anion Gap 8 (5-15); BUN/Creatinine Ratio 20.0 (10.0-20.0); Blood Urea Nitrogen 11 mg/dL (9-23); Calcium 9.4 mg/dL (8.7-10.4); Carbon Dioxide 26 mmol/L (20-31); Chloride 107 mmol/L (98-107); Potassium 3.9 mmol/L (3.5-5.1); Sodium 141 mmol/L (136-145)
[2025-01-29 13:40] LABS: Bilirubin, Total 0.5 mg/dL (0.2-1.0)
[2025-01-29 13:43] LABS: Glucose 135 mg/dL (74-106); Total Protein 5.4 g/dL (5.7-8.2)
== END 2025-01-29 18:24 | DRG 871 ==
LOC: EDBD 22:32 → ER 22:32 → OVERFLOW 01-22 02:57 → TELE-WESTW 01-22 09:16 → WEST WING 01-24 18:49
PROVIDERS: ADMIT Student in an Organized Health Care Education/Training Program; ATTEND Student in an Organized Health Care Education/Training Program
DX: A41.59 Other Gram-negative sepsis (principal); G92.8 Other toxic encephalopathy; J15.69 Pneumonia due to other Gram-negative bacteria; J96.01 Acute respiratory failure with hypoxia; I21.A1 Myocardial infarction type 2; J69.0 Pneumonitis due to inhalation of food and vomit; J15.9 Unspecified bacterial pneumonia; N39.0 Urinary tract infection, site not specified; E44.0 Moderate protein-calorie malnutrition; I16.1 Hypertensive emergency; F03.90 Unspecified dementia, unspecified severity, without behavioral disturbance, psychotic disturbance, mood disturbance, and anxiety; Z66 Do not resuscitate; Z20.822 Contact with and (suspected) exposure to COVID-19; J98.4 Other disorders of lung; E78.5 Hyperlipidemia, unspecified; E86.0 Dehydration; I48.0 Paroxysmal atrial fibrillation; I10 Essential (primary) hypertension; E53.8 Deficiency of other specified B group vitamins; T73.0XXA Starvation, initial encounter; F41.9 Anxiety disorder, unspecified; M19.09 Primary osteoarthritis, other specified site; Z79.899 Other long term (current) drug therapy; Z87.440 Personal history of urinary (tract) infections; Z95.0 Presence of cardiac pacemaker; X58.XXXA Exposure to other specified factors, initial encounter; Z68.28 Body mass index [BMI] 28.0-28.9, adult
CPT/HCPCS: 36415; 70450; 71045; 80048; 80053; 80076; 81001; 82607; 82746; 83605; 83615; 83735; 83880; 84443; 84484; 85025; 87040; 87081; 87426; 87493; 87804; 92610; 93005; 93306; 96360; 97163; G0378; J2003; J2405; J3490